=== PATIENT | female | born 1980 | race American Indian/Alaskan Native ===

== ENCOUNTER 2017-10-19 17:55 | Emergency (ER) | payer MEDICAID ==
[2017-10-19 18:51] LABS: Bacteria,Urine 1+ /HPF (Negative); Bilirubin,Urine NEG (Negative); Blood,Urine NEG (Negative); Color,Urine Amber (Yellow); Mucus,Urine 3+ /HPF
[2017-10-19 18:52] LABS: Protein,Urine >500 mg/dL (Negative)
[2017-10-19 18:54] LABS: HCG Qualitative,Urine Negative (Negative)
[2017-10-19 19:47] LABS: Basophils % (Auto) 0.3 % (0.0-1.8); Eosinophils # (Auto) 0.1 K/mm3 (0.0-0.4); Eosinophils % (Auto) 1.6 % (0.0-4.3); Hematocrit 41.5 % (30.3-42.9); Lymphocytes # (Auto) 3.4 K/mm3 (1.2-5.4); Lymphocytes % (Auto) 39.7 % (13.4-35.0); Mean Corpuscular HGB Conc 34 % (30-34); Mean Corpuscular Hemoglobin 30 pg (28-32); Mean Corpuscular Volume 89 fl (79-97); Monocytes # (Auto) 0.6 K/mm3 (0.0-0.8); Monocytes % (Auto) 6.5 % (0.0-7.3); Platelet Count 257 K/mm3 (140-440); Red Blood Count 4.64 M/mm3 (3.65-5.03); Red Cell Distribution Width 15.2 % (13.2-15.2)
[2017-10-19 19:55] LABS: Alanine Aminotransferase 14 units/L (7-56); Albumin 3.5 g/dL (3.9-5); BUN/Creatinine Ratio 10; Blood Urea Nitrogen 7 mg/dL (7-17); Calcium 9.2 mg/dL (8.4-10.2); Hemolysis Index 7; Lipase 61 units/L (13-60)
[2017-10-19] MEDS: LIDOCAINE VISCOUS 2% PO ONE (21:28)
[2017-10-19] MEDS: ZOFRAN ODT PO ONE (21:28)
[2017-10-19] MEDS: ALUM-MAG HYDROX-SIMETH 200-200-20MG/5ML PO ONE (21:28)
[2017-10-19] MEDS: NORVASC PO ONE (21:35)
[2017-10-19] MEDS: HCTZ PO ONE (21:35)
--- NOTE | 2017-10-19 22:00 | XRay Report ---
FINAL REPORT PROCEDURE: Chest. TECHNIQUE: PA and lateral views. HISTORY: Chest pain. COMPARISON: No prior studies are available for comparison. FINDINGS: The heart size is normal. The right lung is clear and well expanded. There is a short linear density in the lingula consistent with a parenchymal scar. The left lung is otherwise clear. There are no pleural effusions. The soft tissues are unremarkable. The regional skeleton appears intact. IMPRESSION: No evidence of acute disease.
[2017-10-19 22:53] VITALS: BP 190/110
--- NOTE | 2017-10-19 23:00 | Emergency Department Report ---
ED General Adult HPI - General Chief complaint: Abdominal Pain Stated complaint: ABDOMINAL PAIN Time Seen by Provider: 10/19/17 20:48 Source: patient Mode of arrival: Ambulatory Limitations: No Limitations - History of Present Illness Initial comments: Pt states that she was diagnosed with gastric ulcers by her PCP 3 wks ago. Has been having worsening nausea, lightheadedness, and abd pain lately. Seh is concerned that her ulcers could be worse. Currently on omeprazole 40 mg daily. She wants to be set up with a assistant store manager. Pt has been intermittently compliant with her BP meds. No urinary symptoms. Has a h/o IBS. No fam hx of IBD. Severity scale (0 -10): 6 - Related Data Home Medications Medication Instructions Recorded Confirmed Last Taken Bisoprolol/Hctz 1 tab PO DAILY 02/14/15 02/14/15 02/14/15 NIFEdipine 90 mg PO DAILY 02/14/15 02/14/15 02/14/15 Spironolactone 1 tab PO DAILY 02/14/15 02/14/15 02/14/15 Wellbutrin 100 mg PO DAILY 02/14/15 02/14/15 02/14/15 Previous Rx's Medication Instructions Recorded Last Taken Type traMADol [Ultram 50 MG tab] 50 mg PO Q6HR PRN #20 tablet 02/15/15 Unknown Rx Acetamin/Codeine 120-12Mg/5 ml 5 ml PO TID PRN #30 ml 03/04/15 Unknown Rx [Tylenol/Codeine] Fluconazole [Diflucan TAB] 150 mg PO ONCE #1 tablet 03/04/15 Unknown Rx Ondansetron [Zofran Odt] 4 mg PO Q6HR PRN #15 tab.rapdis 10/19/17 Unknown Rx Sucralfate [Carafate] 1 gm PO Q6HR PRN #1 bottle 10/19/17 Unknown Rx Allergies Allergy/AdvReac Type Severity Reaction Status Date / Time No Known Allergies Allergy Verified 08/08/14 21:13 ED Review of Systems ROS: Stated complaint: ABDOMINAL PAIN Other details as noted in HPI Comment: All other systems reviewed and negative Gastrointestinal: abdominal pain, nausea, vomiting Neurological: other (dizziness) ED Past Medical Hx - Past Medical History Previous Medical History?: Yes Hx Hypertension: Yes Hx GERD: Yes Additional medical history: Gastric Ulcers - Surgical History Past Surgical History?: Yes Additional Surgical History: - Social History Smoking Status: Current Every Day Smoker Substance Use Type: Alcohol, Prescribed - Medications Home Medications: Home Medications Medication Instructions Recorded Confirmed Last Taken Type Bisoprolol/Hctz 1 tab PO DAILY 02/14/15 02/14/15 02/14/15 History NIFEdipine 90 mg PO DAILY 02/14/15 02/14/15 02/14/15 History Spironolactone 1 tab PO DAILY 02/14/15 02/14/15 02/14/15 History Wellbutrin 100 mg PO DAILY 02/14/15 02/14/15 02/14/15 History traMADol [Ultram 50 MG tab] 50 mg PO Q6HR PRN #20 tablet 02/15/15 Unknown Rx Acetamin/Codeine 120-12Mg/5 ml 5 ml PO TID PRN #30 ml 03/04/15 Unknown Rx [Tylenol/Codeine] Fluconazole [Diflucan TAB] 150 mg PO ONCE #1 tablet 03/04/15 Unknown Rx Ondansetron [Zofran Odt] 4 mg PO Q6HR PRN #15 tab.rapdis 10/19/17 Unknown Rx Sucralfate [Carafate] 1 gm PO Q6HR PRN #1 bottle 10/19/17 Unknown Rx ED Physical Exam - General Limitations: No Limitations General appearance: alert, in no apparent distress - Head Head exam: Present: atraumatic, normocephalic - Eye Eye exam: Present: normal appearance - ENT ENT exam: Present: mucous membranes moist - Neck Neck exam: Present: normal inspection - Respiratory Respiratory exam: Present: normal lung sounds bilaterally. Absent: respiratory distress - Cardiovascular Cardiovascular Exam: Present: regular rate, normal rhythm. Absent: systolic murmur, diastolic murmur, rubs, gallop - GI/Abdominal GI/Abdominal exam: Present: soft, normal bowel sounds. Absent: tenderness - Extremities Exam Extremities exam: Present: normal inspection - Back Exam Back exam: Present: normal inspection - Neurological Exam Neurological exam: Present: alert, oriented X3 - Psychiatric Psychiatric exam: Present: normal affect, normal mood - Skin Skin exam: Present: warm, dry, intact, normal color. Absent: rash ED Course Vital Signs 10/19/17 10/19/17 10/19/17 18:00 20:48 21:35 Temperature 98.8 F 98.1 F Pulse Rate 102 H 81 Respiratory 22 18 18 Rate Blood Pressure 177/108 Blood Pressure 202/118 [Left] O2 Sat by Pulse 100 99 99 Oximetry 10/19/17 10/19/17 21:59 22:52 Temperature Pulse Rate 75 71 Respiratory 16 18 Rate Blood Pressure Blood Pressure 183/123 190/110 [Left] O2 Sat by Pulse 99 100 Oximetry ED Medical Decision Making - Lab Data Result diagrams: 10/19/17 19:07 10/19/17 19:07 - EKG Data -: EKG Interpreted by Me EKG shows normal: sinus rhythm, axis, intervals, QRS complexes, ST-T waves Rate: normal - EKG Data Interpretation: no acute changes - Radiology Data Radiology results: report reviewed, image reviewed - Medical Decision Making 37-year-old female with past medical history of hypertension, IBS that presents to the ER with complaints of abdominal pain, lightheadedness, and nausea. Vital signs negative for hypertension. Systolic blood pressure is 180s of presentation. EKG is nonischemic. Labwork shows concerns for mild dehydration. Patient's given a GI cocktail. I gave the patient her home blood pressure medication. Her blood pressure mildly improved. She said that she'll follow up with their family doctor for further management of her blood pressure and that she does not want to wait for further medication. Given the patient denies any chest pain, short of breath or neurologic symptoms, felt that this was appropriate. Patient will be prescribed Carafate. Clear for discharge. - Differential Diagnosis acs, pna, pe, gastritis, gerd, dehydration Critical care attestation.: If time is entered above; I have spent that time in minutes in the direct care of this critically ill patient, excluding procedure time. ED Disposition Clinical Impression: Nausea, Dehydration, Hypertension Disposition: DC-01 TO HOME OR SELFCARE Is pt being admited?: No Does the pt Need Aspirin: No Condition: Stable Instructions: Abdominal Pain (ED), Hypertension (ED) Additional Instructions: Follow up with your PCP for further management of your blood pressure. Take your blood pressure medication as prescribed. Check your blood pressure when you are feeling lightheaded to see if it is related to what is going on. Prescriptions: Ondansetron [Zofran Odt] 4 mg PO Q6HR PRN #15 tab.rapdis PRN Reason: Nausea Sucralfate [Carafate] 1 gm PO Q6HR PRN #1 bottle PRN Reason: Pain, Mild (1-3) Referrals: PRIMARY CARE, [Primary Care Provider] - 3-5 Days LENARD ARANDA MD [Staff Physician] - 3-5 Days
== END 2017-10-19 23:40 | disposition home or self-care (01) ==
LOC: ED 17:55
DX: E86.0 Dehydration (principal); R11.0 Nausea; I10 Essential (primary) hypertension; K21.9 Gastro-esophageal reflux disease without esophagitis; F17.200 Nicotine dependence, unspecified, uncomplicated; Z87.11 Personal history of peptic ulcer disease
CPT/HCPCS: 36415; 71046; 80053; 81001; 81025; 83690; 84484; 85025; 93005; 93010; Q0162

== ENCOUNTER 2020-01-06 18:27 | Emergency (ER) | payer MEDICAID ==
[2020-01-06 18:38] VITALS: BP 146/94
--- NOTE | 2020-01-06 23:29 | Emergency Department Report ---
ED General Adult HPI - General Chief complaint: Extremity Problem,Nontraumatic Stated complaint: LEFT HAND AND FINGERS NUMB PUI?: No Time Seen by Provider: 01/06/20 22:25 Source: patient Mode of arrival: Ambulatory Limitations: No Limitations - History of Present Illness Initial comments: This is a 39-year-old female with a history of hypertension and diabetes currently controlled with medication presents the ED today complaining of left hand numbness and tingling with pain x2 weeks. Patient states symptoms about 2 weeks ago and has increasingly gotten worse. Patient states pain is intermittent but usually worse at night. She denies any swelling to the hands or injuries to the hand. Patient states sometimes she drops things when she lives with her left hand. She denies fever/chills/chest pain shortness of breath or any other symptoms. - Related Data Home Medications Medication Instructions Recorded Confirmed Last Taken Bisoprolol/Hctz 1 tab PO DAILY 02/14/15 02/14/15 02/14/15 NIFEdipine 90 mg PO DAILY 02/14/15 02/14/15 02/14/15 Spironolactone 1 tab PO DAILY 02/14/15 02/14/15 02/14/15 Wellbutrin 100 mg PO DAILY 02/14/15 02/14/15 02/14/15 Previous Rx's Medication Instructions Recorded Last Taken Type traMADoL [Ultram 50 MG tab] 50 mg PO Q6HR PRN #20 tablet 02/15/15 Unknown Rx Acetamin/Codeine 120-12Mg/5 ml 5 ml PO TID PRN #30 ml 03/04/15 Unknown Rx [Tylenol/Codeine] Fluconazole (Nf) [Diflucan TAB] 150 mg PO ONCE #1 tablet 03/04/15 Unknown Rx Ondansetron [Zofran Odt] 4 mg PO Q6HR PRN #15 tab.rapdis 10/19/17 Unknown Rx Sucralfate [Carafate] 1 gm PO Q6HR PRN #1 bottle 10/19/17 Unknown Rx Gabapentin 300 mg PO QHS #15 cap 01/07/20 Unknown Rx Allergies Allergy/AdvReac Type Severity Reaction Status Date / Time No Known Allergies Allergy Verified 08/08/14 21:13 ED Review of Systems ROS: Stated complaint: LEFT HAND AND FINGERS NUMB Other details as noted in HPI Comment: All other systems reviewed and negative ED Past Medical Hx - Past Medical History Previous Medical History?: Yes Hx Hypertension: Yes Hx GERD: Yes Additional medical history: Gastric Ulcers - Surgical History Past Surgical History?: Yes Additional Surgical History: - Social History Smoking Status: Current Every Day Smoker Substance Use Type: Alcohol, Prescribed - Medications Home Medications: Home Medications Medication Instructions Recorded Confirmed Last Taken Type Bisoprolol/Hctz 1 tab PO DAILY 02/14/15 02/14/15 02/14/15 History NIFEdipine 90 mg PO DAILY 02/14/15 02/14/15 02/14/15 History Spironolactone 1 tab PO DAILY 02/14/15 02/14/15 02/14/15 History Wellbutrin 100 mg PO DAILY 02/14/15 02/14/15 02/14/15 History traMADoL [Ultram 50 MG tab] 50 mg PO Q6HR PRN #20 tablet 02/15/15 Unknown Rx Acetamin/Codeine 120-12Mg/5 ml 5 ml PO TID PRN #30 ml 03/04/15 Unknown Rx [Tylenol/Codeine] Fluconazole (Nf) [Diflucan TAB] 150 mg PO ONCE #1 tablet 03/04/15 Unknown Rx Ondansetron [Zofran Odt] 4 mg PO Q6HR PRN #15 tab.rapdis 10/19/17 Unknown Rx Sucralfate [Carafate] 1 gm PO Q6HR PRN #1 bottle 10/19/17 Unknown Rx Gabapentin 300 mg PO QHS #15 cap 01/07/20 Unknown Rx ED Physical Exam - General Limitations: No Limitations General appearance: alert, in no apparent distress - Head Head exam: Present: atraumatic, normocephalic - Eye Eye exam: Present: normal appearance - ENT ENT exam: Present: mucous membranes moist - Neck Neck exam: Present: normal inspection - Respiratory Respiratory exam: Present: normal lung sounds bilaterally. Absent: respiratory distress - Cardiovascular Cardiovascular Exam: Present: regular rate, normal rhythm. Absent: systolic murmur, diastolic murmur, rubs, gallop - GI/Abdominal GI/Abdominal exam: Present: soft, normal bowel sounds - Extremities Exam Extremities exam: Present: normal inspection, normal capillary refill - Expanded Upper Extremity Exam Left Shoulder Exam: Present: normal inspection Upper Arm exam: Present: normal inspection Elbow exam: Present: normal inspection Forearm Wrist exam: Present: normal inspection, full ROM. Absent: tenderness, swelling, abrasion, laceration Hand Wrist exam: Present: normal inspection, full ROM. Absent: tenderness, swelling, abrasion, laceration, erythema, amputation - Back Exam Back exam: Present: normal inspection - Neurological Exam Neurological exam: Present: alert, oriented X3 - Psychiatric Psychiatric exam: Present: normal affect, normal mood - Skin Skin exam: Present: warm, dry, intact, normal color. Absent: rash ED Course Vital Signs 01/06/20 18:36 Temperature 99.1 F Pulse Rate 97 H Respiratory 20 Rate Blood Pressure 146/94 O2 Sat by Pulse 98 Oximetry ED Medical Decision Making - Medical Decision Making This 39-year-old female presents to ED with left hand paresthesia most likely secondary to diabetic neuropathy. Fingerstick in the ED was normal. I discussed with patient follow-up with her neurologist. Patient is in no acute distress. Patient had no neuro deficit in the ED. Discussed follow-up is essential. Vital signs are normal Critical care attestation.: If time is entered above; I have spent that time in minutes in the direct care of this critically ill patient, excluding procedure time. ED Disposition Clinical Impression: Left hand paresthesia Disposition: DC-01 TO HOME OR SELFCARE Is pt being admited?: No Does the pt Need Aspirin: No Condition: Stable Instructions: Diabetic Neuropathy (ED), Paresthesia (ED) Additional Instructions: Make sure to follow up with the primary care physician as discussed. Take all your medications as you've been prescribed. If you have any worsening symptoms or develop new symptoms please return to ED immediately. Prescriptions: Gabapentin 300 mg PO QHS #15 cap Referrals: MARIANO RIVER MD [Staff Physician] - 3-5 Days [facility] [Provider Group] - 3-5 Days Forms: Work/School Release Form(ED) Time of Disposition: 00:05
== END 2020-01-07 00:10 | disposition home or self-care (01) ==
LOC: ED 18:27
DX: R20.2 Paresthesia of skin (principal); I10 Essential (primary) hypertension; K21.9 Gastro-esophageal reflux disease without esophagitis; F17.200 Nicotine dependence, unspecified, uncomplicated; Z79.899 Other long term (current) drug therapy; Z98.890 Other specified postprocedural states
CPT/HCPCS: 82962; 99283

== ENCOUNTER 2020-07-04 15:03 | Emergency (ER) | payer MEDICAID ==
[2020-07-04 15:53] VITALS: BP 175/111
--- NOTE | 2020-07-04 16:22 | Event Note ---
ED Screening Note Date of service: 07/04/20 Time: 16:21 ED Screening Note: 40-year-old obese female presents to the emergency room for lower back pain status post fall while at [facility] yesterday. Patient has not taken anything for pain. Patient denies any urinary or bowel incontinence. Past medical history of hypertension and prediabetes. This initial assessment/diagnostic orders/clinical plan/treatment(s) is/are subject to change based on patients health status, clinical progression and re- assessment by fellow clinical providers in the ED. Further treatment and workup at subsequent clinical providers discretion. Patient/guardian urged not to elope from the ED as their condition may be serious if not clinically assessed and managed. Initial orders include:
--- NOTE | 2020-07-04 17:21 | XRay Report ---
LUMBAR SPINE 3 VIEWS INDICATION / CLINICAL INFORMATION: fall with back pain. COMPARISON: None available. FINDINGS: VERTEBRAE: No acute fracture. No significant malalignment. DISC SPACES / FACET JOINTS:No significant abnormality. PARASPINAL SOFT TISSUES:No significant abnormality. ADDITIONAL FINDINGS: None. Signer Name: Jagdish Pierre MD Signed: 07/04/2020 5:17 PM Workstation Name: [id number]
--- NOTE | 2020-07-04 17:55 | Emergency Department Report ---
ED Fall HPI - General Chief Complaint: Fall Stated Complaint: FALL/LOWER BACK PRESSURE/BURNING Source: patient Mode of arrival: Ambulatory - History of Present Illness Initial Comments: 40-year-old obese female presents to the emergency room for lower back pain status post fall while at [facility] yesterday. Patient has not taken anything for pain. Patient denies any urinary or bowel incontinence. Past medical history of hypertension and prediabetes. MD Complaint: fall Onset/Timin -: days(s) Fall From: standing When Fall Occurred: [address] [facility] [facility] Fall Occurred: street ([facility]) Loss of Consciousness: none Prolonged Down Time?: no Symptoms Prior to Fall: none Location: back Severity scale (0 -10): 8 Quality: sharp, aching Context: tripped/slipped Associated Symptoms: denies: weakness, chest paint, lightheaded - Related Data Home Medications Medication Instructions Recorded Confirmed Last Taken Bisoprolol/Hctz 1 tab PO DAILY 02/14/15 02/14/15 02/14/15 NIFEdipine 90 mg PO DAILY 02/14/15 02/14/15 02/14/15 Spironolactone 1 tab PO DAILY 02/14/15 02/14/15 02/14/15 Wellbutrin 100 mg PO DAILY 02/14/15 02/14/15 02/14/15 Previous Rx's Medication Instructions Recorded Last Taken Type traMADoL [Ultram 50 MG tab] 50 mg PO Q6HR PRN #20 tablet 02/15/15 Unknown Rx Acetamin/Codeine 120-12Mg/5 ml 5 ml PO TID PRN #30 ml 03/04/15 Unknown Rx [Tylenol/Codeine] Fluconazole (Nf) [Diflucan TAB] 150 mg PO ONCE #1 tablet 03/04/15 Unknown Rx Ondansetron [Zofran Odt] 4 mg PO Q6HR PRN #15 tab.rapdis 10/19/17 Unknown Rx Sucralfate [Carafate] 1 gm PO Q6HR PRN #1 bottle 10/19/17 Unknown Rx Gabapentin 300 mg PO QHS #15 cap 01/07/20 Unknown Rx traMADoL [Ultram 50 MG tab] 50 mg PO Q6HR PRN #12 tablet 07/04/20 Unknown Rx Allergies Allergy/AdvReac Type Severity Reaction Status Date / Time No Known Allergies Allergy Verified 08/08/14 21:13 ED Review of Systems ROS: Stated complaint: FALL/LOWER BACK PRESSURE/BURNING Other details as noted in HPI Comment: All other systems reviewed and negative ED Past Medical Hx - Past Medical History Hx Hypertension: Yes Hx GERD: Yes Additional medical history: Gastric Ulcers - Surgical History Additional Surgical History: - Social History Smoking Status: Current Every Day Smoker Substance Use Type: None - Medications Home Medications: Home Medications Medication Instructions Recorded Confirmed Last Taken Type Bisoprolol/Hctz 1 tab PO DAILY 02/14/15 02/14/15 02/14/15 History NIFEdipine 90 mg PO DAILY 02/14/15 02/14/15 02/14/15 History Spironolactone 1 tab PO DAILY 02/14/15 02/14/15 02/14/15 History Wellbutrin 100 mg PO DAILY 02/14/15 02/14/15 02/14/15 History traMADoL [Ultram 50 MG tab] 50 mg PO Q6HR PRN #20 tablet 02/15/15 Unknown Rx Acetamin/Codeine 120-12Mg/5 ml 5 ml PO TID PRN #30 ml 03/04/15 Unknown Rx [Tylenol/Codeine] Fluconazole (Nf) [Diflucan TAB] 150 mg PO ONCE #1 tablet 03/04/15 Unknown Rx Ondansetron [Zofran Odt] 4 mg PO Q6HR PRN #15 tab.rapdis 10/19/17 Unknown Rx Sucralfate [Carafate] 1 gm PO Q6HR PRN #1 bottle 10/19/17 Unknown Rx Gabapentin 300 mg PO QHS #15 cap 01/07/20 Unknown Rx traMADoL [Ultram 50 MG tab] 50 mg PO Q6HR PRN #12 tablet 07/04/20 Unknown Rx ED Physical Exam - General Limitations: No Limitations General appearance: alert, in no apparent distress, obese - Head Head exam: Present: atraumatic, normocephalic - Eye Eye exam: Present: normal appearance - ENT ENT exam: Present: mucous membranes moist - Neck Neck exam: Present: normal inspection - Respiratory Respiratory exam: Present: normal lung sounds bilaterally. Absent: respiratory distress, chest wall tenderness, accessory muscle use - Cardiovascular Cardiovascular Exam: Present: regular rate - Back Exam Back exam: Present: full ROM, vertebral tenderness - Neurological Exam Neurological exam: Present: alert, oriented X3, normal gait - Psychiatric Psychiatric exam: Present: normal affect, normal mood - Skin Skin exam: Present: warm, dry, intact, normal color. Absent: rash ED Course Vital Signs 07/04/20 15:45 Temperature 98.4 F Pulse Rate 72 Respiratory 18 Rate Blood Pressure 175/111 O2 Sat by Pulse 98 Oximetry ED Medical Decision Making - Radiology Data Radiology results: report reviewed [facility] [address] [place] [address] XRay Report Signed Patient: JONES LORD MR#: [id number] : 1980 Acct:[id number] Age/Sex: 40 / F ADM Date: 07/04/20 Loc: ED Attending Dr: Ordering Physician: MARQUISE LEONE Date of Service: 07/04/20 Procedure(s): XR spine lumbosacral 2-3V Accession Number(s): [id number] cc: MARQUISE LEONE Fluoro Time In Minutes: LUMBAR SPINE 3 VIEWS INDICATION / CLINICAL INFORMATION: fall with back pain. COMPARISON: None available. FINDINGS: VERTEBRAE: No acute fracture. No significant malalignment. DISC SPACES / FACET JOINTS:No significant abnormality. PARASPINAL SOFT TISSUES:No significant abnormality. ADDITIONAL FINDINGS: None. Signer Name: Tracey Pierre MD Signed: 07/04/2020 5:17 PM Workstation Name: [id number] Transcribed By: SS Dictated By: TRACEY PIERRE Electronically Authenticated By: TRACEY PIERRE Signed Date/Time: 07/04/201716 DD/ 15 TD/TT: - Medical Decision Making 40-year-old obese female presents to the emergency room for lower back pain status post fall while at [facility] yesterday. Patient has not taken anything for pain. Patient denies any urinary or bowel incontinence. Past medical history of hypertension and prediabetes. X-ray of back is normal. Patient can take Tylenol. Given a prescription for tramadol for a few days as patient's blood pressure still elevated. The patient presents with acute back pain. The patient is now resting comfortably and feels better, is alert talkative interactive and in no distress. Repeat examination is unremarkable and benign. The patient is neurologically intact and is ambulatory in the ED. Patient has no fever, no bowel or bladder incontinence, no saddle anesthesia, and is otherwise alert and well-appearing. The history physical examination and diagnostic( if any) do not suggest the presence of acute spinal epidural abscess, acute spinal epidural bleed, cauda equina syndrome, abdominal aortic aneurysm, aortic dissection or other process requiring further testing, treatment or consultation in the emergency department. The vital signs have been stable. The patient's condition is stable and appropriate for discharge. The patient will pursue further outpatient evaluation with a primary care physician or other designated or co nsulting physician as indicated in the discharge instructions. Critical care attestation.: If time is entered above; I have spent that time in minutes in the direct care of this critically ill patient, excluding procedure time. ED Disposition Clinical Impression: Fall Qualifiers: Encounter type: initial encounter Qualified Code(s): W19.XXXA - Unspecified fall, initial encounter Hypertension Qualifiers: Hypertension type: essential hypertension Qualified Code(s): I10 - Essential (primary) hypertension Back pain Qualifiers: Back pain location: low back pain Chronicity: acute Back pain laterality: midline Disposition: DC-01 TO HOME OR SELFCARE Is pt being admited?: No Does the pt Need Aspirin: No Condition: Stable Instructions: Hypertension (ED), Hypertension, Adult, [id number], Acute Back Pain, Adult Additional Instructions: X-ray of back is negative for any fractures or subluxation. Given you prescription for tramadol. I highly recommended you follow-up with your primary care provider as your blood pressure is still elevated. Prescriptions: traMADoL [Ultram 50 MG tab] 50 mg PO Q6HR PRN #12 tablet PRN Reason: Pain Referrals: JAHAIRA GOMEZ MD [Primary Care Provider] - 3-5 Days Forms: Work/School Release Form(ED)
== END 2020-07-04 18:31 | disposition home or self-care (01) ==
LOC: ED 15:03
DX: M54.5 Low back pain (principal); I10 Essential (primary) hypertension; K21.9 Gastro-esophageal reflux disease without esophagitis; F17.200 Nicotine dependence, unspecified, uncomplicated; Z79.899 Other long term (current) drug therapy
CPT/HCPCS: 72100; 99283

== ENCOUNTER 2020-12-17 17:21 | Observation (INO) | payer MEDICAID ==
[2020-12-17] MEDS ORDERED: METOPROLOL TARTRATE 50 MG TAB PO ONE (17:51)
[2020-12-17] MEDS ORDERED: ASPIRIN 81 MG TAB CHEW PO ONE (17:52)
--- NOTE | 2020-12-17 17:57 | Emergency Department Report ---
ED Chest Pain HPI - General Chief Complaint: Chest Pain Stated Complaint: CHEST PAIN Time Seen by Provider: 12/17/20 17:50 Source: patient Mode of arrival: Ambulatory Limitations: No Limitations - History of Present Illness Initial Comments: 40-year-old -[place] female presents to the emergency department with complaint of midsternal to left-sided chest pain, without radiation, that has been going on since last night. Initially it started last night while at rest. It began to improve but then came back after she ate dinner and climbed the stairs to her bedroom. She had some difficulty getting appropriate sleep secondary to the discomfort, which she describes as a pressure. She was able to fall asleep but woke up with the pain again. Currently she says it is 6 out of 10 in intensity. No known alleviating factors. Patient took her blood pressure medications this morning including metoprolol 25 mg daily and hydralazine 50 mg daily. She has a history of hypertension, diabetes (although not compliant with meds), and the patient is a tobacco smoker. She denies any illicit drug use. The patient says that her brother had an WA at 45 years of age. Her primary care physician is Dr. Jarret English. She does not have a city dispatcher. No recent travel or sick contacts at home. Severity scale (0 -10): 6 - Related Data Home Medications Medication Instructions Recorded Confirmed Last Taken Bisoprolol/Hctz 1 tab PO DAILY 02/14/15 02/14/15 02/14/15 NIFEdipine 90 mg PO DAILY 02/14/15 02/14/15 02/14/15 Spironolactone 1 tab PO DAILY 02/14/15 02/14/15 02/14/15 Wellbutrin 100 mg PO DAILY 02/14/15 02/14/15 02/14/15 Previous Rx's Medication Instructions Recorded Last Taken Type traMADoL [Ultram 50 MG tab] 50 mg PO Q6HR PRN #20 tablet 02/15/15 Unknown Rx Acetamin/Codeine 120-12Mg/5 ml 5 ml PO TID PRN #30 ml 03/04/15 Unknown Rx [Tylenol/Codeine] Fluconazole (Nf) [Diflucan TAB] 150 mg PO ONCE #1 tablet 03/04/15 Unknown Rx Ondansetron [Zofran Odt] 4 mg PO Q6HR PRN #15 tab.rapdis 10/19/17 Unknown Rx Sucralfate [Carafate] 1 gm PO Q6HR PRN #1 bottle 10/19/17 Unknown Rx Gabapentin 300 mg PO QHS #15 cap 01/07/20 Unknown Rx traMADoL [Ultram 50 MG tab] 50 mg PO Q6HR PRN #12 tablet 07/04/20 Unknown Rx Allergies Allergy/AdvReac Type Severity Reaction Status Date / Time No Known Allergies Allergy Verified 08/08/14 21:13 Heart Score - HEART Score History: Moderately suspicious (Exertion increases pain) EKG: Non-specific Age: < 45 Risk factors: > 3 risk factors or hx of atherosclerotic disease (Tobacco, Brother [place] at 45 yoa, HTN) Troponin: < normal limit HEART Score: 4 - EKG Read Time Time EKG Completed: 17:40 EKG Read Time: 17:45 - Critical Actions Critical Actions: 4-6 pts:12-16.6% risk of adverse cardiac event. Should be admitted ED Review of Systems ROS: Stated complaint: CHEST PAIN Other details as noted in HPI Comment: All other systems reviewed and negative Constitutional: denies: chills, fever Eyes: denies: eye pain, vision change ENT: denies: ear pain, throat pain Respiratory: denies: cough, shortness of breath Cardiovascular: chest pain. denies: palpitations Gastrointestinal: denies: abdominal pain, vomiting Genitourinary: denies: dysuria, discharge Musculoskeletal: denies: back pain, arthralgia Skin: denies: rash, change in color Neurological: denies: weakness ED Past Medical Hx - Past Medical History Hx Hypertension: Yes Hx GERD: Yes Additional medical history: Gastric Ulcers - Surgical History Additional Surgical History: - Social History Smoking Status: Current Every Day Smoker Substance Use Type: None - Medications Home Medications: Home Medications Medication Instructions Recorded Confirmed Last Taken Type Bisoprolol/Hctz 1 tab PO DAILY 02/14/15 02/14/15 02/14/15 History NIFEdipine 90 mg PO DAILY 02/14/15 02/14/15 02/14/15 History Spironolactone 1 tab PO DAILY 02/14/15 02/14/15 02/14/15 History Wellbutrin 100 mg PO DAILY 02/14/15 02/14/15 02/14/15 History traMADoL [Ultram 50 MG tab] 50 mg PO Q6HR PRN #20 tablet 02/15/15 Unknown Rx Acetamin/Codeine 120-12Mg/5 ml 5 ml PO TID PRN #30 ml 03/04/15 Unknown Rx [Tylenol/Codeine] Fluconazole (Nf) [Diflucan TAB] 150 mg PO ONCE #1 tablet 03/04/15 Unknown Rx Ondansetron [Zofran Odt] 4 mg PO Q6HR PRN #15 tab.rapdis 10/19/17 Unknown Rx Sucralfate [Carafate] 1 gm PO Q6HR PRN #1 bottle 10/19/17 Unknown Rx Gabapentin 300 mg PO QHS #15 cap 01/07/20 Unknown Rx traMADoL [Ultram 50 MG tab] 50 mg PO Q6HR PRN #12 tablet 07/04/20 Unknown Rx ED Physical Exam - General Limitations: No Limitations - Other Other exam information: GENERAL: The patient is well-developed well-nourished. HENT: Normocephalic. Atraumatic. Patient has moist mucous membranes. EYES: Extraocular motions are intact. NECK: Supple. Trachea is midline. CHEST/LUNGS: Clear to auscultation. There is no respiratory distress noted. HEART/CARDIOVASCULAR: Regular. There is no tachycardia. There is no murmur. ABDOMEN: Abdomen is soft, nontender. Patient has normal bowel sounds. SKIN: Skin is warm and dry. NEURO: The patient is awake, alert, and oriented. The patient is cooperative. The patient has no focal neurologic deficits. Normal speech. MUSCULOSKELETAL: There is no tenderness or deformity. There is no limitation range of motion. ED Course Vital Signs 12/17/20 12/17/20 12/17/20 17:31 21:30 22:22 Temperature 98.2 F Pulse Rate 87 91 H 93 H Respiratory 22 12 Rate Blood Pressure Blood Pressure 222/131 215/140 184/118 [Right] O2 Sat by Pulse 100 98 Oximetry 12/17/20 12/17/20 12/17/20 22:44 22:45 22:48 Temperature Pulse Rate 121 H 120 H 100 H Respiratory 27 H 18 Rate Blood Pressure Blood Pressure 196/108 [Right] O2 Sat by Pulse 100 Oximetry 12/18/20 00:02 Temperature Pulse Rate 100 H Respiratory Rate Blood Pressure 196/108 Blood Pressure [Right] O2 Sat by Pulse Oximetry KIRA score - Kira Score Age > 65: (0) No Aspirin use within the Past 7 Days: (0) No 3 or more CAD Risk Factors: (1) Yes 2 or more Angina events in past 24 hrs: (1) Yes Known CAD with more than 50% Stenosis: (0) No Elevated Cardiac Markers: (0) No ST Deviation Greater than 0.5mm: (0) No KIRA Score: 2 ED Medical Decision Making - Lab Data Result diagrams: 12/18/20 00:00 12/18/20 00:00 Lab Results 12/17/20 12/17/20 12/17/20 Range/Units 18:00 18:00 20:40 WBC 9.0 (4.5-11.0) K/mm3 RBC 4.96 (3.65-5.03) M/mm3 Hgb 14.8 H (10.1-14.3) gm/dl Hct 44.0 H (30.3-42.9) % MCV 89 (79-97) fl MCH 30 (28-32) pg MCHC 34 (30-34) % RDW 15.5 H (13.2-15.2) % Plt Count 294 (140-440) K/mm3 Lymph % (Auto) 39.5 H (13.4-35.0) % Bland % (Auto) 6.9 (0.0-7.3) % Eos % (Auto) 1.9 (0.0-4.3) % Baso % (Auto) 0.3 (0.0-1.8) % Lymph # (Auto) 3.6 (1.2-5.4) K/mm3 Bland # (Auto) 0.6 (0.0-0.8) K/mm3 Eos # (Auto) 0.2 (0.0-0.4) K/mm3 Baso # (Auto) 0.0 (0.0-0.1) K/mm3 Seg Neutrophils % 51.4 (40.0-70.0) % Seg Neutrophils # 4.6 (1.8-7.7) K/mm3 Sodium 138 (137-145) mmol/L Potassium 4.2 (3.6-5.0) mmol/L Chloride 105.2 (98-107) mmol/L Carbon Dioxide 22 (22-30) mmol/L Anion Gap 15 mmol/L BUN 12 (7-17) mg/dL Creatinine 0.6 (0.6-1.2) mg/dL Estimated GFR > 60 ml/min BUN/Creatinine Ratio 20 % Glucose 105 H (65-100) mg/dL Calcium 9.2 (8.4-10.2) mg/dL Troponin T < 0.010 < 0.010 (0.00-0.029) ng/mL - EKG Data -: EKG Interpreted by Me EKG shows normal: sinus rhythm, axis, intervals, QRS complexes (Q waves to the anterior leads), ST-T waves (Lateral T wave inversions) Rate: normal - EKG Data When compared to previous EKG there are: changes noted (Previous EKG from 2018 did not show anterior Q waves or T wave inversions) Interpretation: other (Sinus rhythm at 84 bpm, normal axis, normal intervals, anterior Q waves, T wave inversions to the high lateral leads.) - Radiology Data Radiology results: image reviewed interpreted by me: Chest x-ray does not show any acute process. There are no pleural effusions, obvious pneumonia and there is no pneumothorax. No widened mediastinum. - Medical Decision Making This patient presents to the emergency department with left-sided chest pain going on since last night. She also presents with extremely elevated blood pressure. EKG did not have any morphology consistent with ST elevation myocardial infarction. The patient does appear to have new lateral T wave inversions and anterior Q waves when compared to her last EKG here in 2018. Chest x-ray does not show any pneumonia, pleural effusions, pneumothorax, focal consolidation, or any other acute process. Patient's labs have been mostly unremarkable thus far including CBC, metabolic panel and negative troponin x2. Patient has a moderate heart score. Her pain worsens with any exertion. She has a nonspecific EKG. She has 3 or more risk factors for coronary artery disease including tobacco use, hypertension, and early family history of [place]. Patient was given multiple doses of IV analgesia with some improvement in her hypertension. She will be admitted to the hospital for further evaluation and treatment and was accepted for patient by the hospitalist, Dr. Harding. Critical Care Time: No Critical care attestation.: If time is entered above; I have spent that time in minutes in the direct care of this critically ill patient, excluding procedure time. ED Disposition Clinical Impression: Hypertensive urgency, Acute chest pain, Tobacco use Disposition: ADMITTED INPATIENT Is pt being admited?: Yes Condition: Fair Time of Disposition: 22:50
[2020-12-17 18:34] LABS: Blood Urea Nitrogen 12 mg/dL (7-17); Calcium 9.2 mg/dL (8.4-10.2); Hemolysis Index 9
[2020-12-17 18:35] LABS: BUN/Creatinine Ratio 20
--- NOTE | 2020-12-17 18:47 | XRay Report ---
CHEST 2 VIEWS INDICATION / CLINICAL INFORMATION: C/O CHEST PAIN. NO RADAITION NO SOB NO DIAPHORESIS. NO N/V. STARTE D LAST NIGHT. COMPARISON: None available. FINDINGS: SUPPORT DEVICES: None. HEART / MEDIASTINUM: No significant abnormality. LUNGS / PLEURA: No focal consolidation. Minimal linear atelectasis in left midlung No pneumothorax. ADDITIONAL FINDINGS: No significant additional findings. IMPRESSION: 1. No acute findings. Signer Name: Wolf Chung MD Signed: 12/17/2020 6:42 PM Workstation Name: [id number]
[2020-12-17 18:49] LABS: Basophils % (Auto) 0.3 % (0.0-1.8); Eosinophils # (Auto) 0.2 K/mm3 (0.0-0.4); Eosinophils % (Auto) 1.9 % (0.0-4.3); Hemoglobin 14.8 gm/dl (10.1-14.3); Lymphocytes # (Auto) 3.6 K/mm3 (1.2-5.4); Lymphocytes % (Auto) 39.5 % (13.4-35.0); Mean Corpuscular HGB Conc 34 % (30-34); Mean Corpuscular Volume 89 fl (79-97); Monocytes # (Auto) 0.6 K/mm3 (0.0-0.8); Monocytes % (Auto) 6.9 % (0.0-7.3); Platelet Count 294 K/mm3 (140-440); Red Blood Count 4.96 M/mm3 (3.65-5.03); Red Cell Distribution Width 15.5 % (13.2-15.2)
[2020-12-17] MEDS ORDERED: hydrALAZINE 20 MG/1 ML INJ IV ONE ×2 (19:37→21:29)
[2020-12-17] MEDS ORDERED: SENNOSIDES 8.6 MG TAB PO PRN (23:39)
[2020-12-17] MEDS ORDERED: IBUPROFEN 600 MG TAB PO PRN (23:39)
[2020-12-17] MEDS ORDERED: MAGNESIUM HYDROXIDE (MOM) ORAL LIQD UDC PO PRN (23:39)
[2020-12-17] MEDS ORDERED: ALUM-MAG HYDROXIDE-SIMETHICONE 200-200-20MG/5ML ORAL LIQD 30 ML PO PRN (23:39)
[2020-12-17] MEDS ORDERED: NITROGLYCERIN 0.4 MG TAB SUBL SL PRN (23:39)
[2020-12-17] MEDS ORDERED: ONDANSETRON 4 MG/2 ML INJ IV PRN (23:39)
[2020-12-17] MEDS ORDERED: traMADol 50 MG TAB PO PRN (23:39)
[2020-12-17] MEDS ORDERED: METOCLOPRAMIDE 10 MG/2 ML INJ IV PRN (23:39)
[2020-12-17] MEDS ORDERED: ACETAMINOPHEN 325 MG TAB PO PRN (23:39)
[2020-12-17] MEDS ORDERED: NALOXONE 0.4 MG/1 ML INJ IV PRN (23:39)
[2020-12-17] MEDS ORDERED: METOPROLOL TARTRATE 25 MG TAB PO SCH (23:45)
[2020-12-18] MEDS: oxyCODONE /ACETAMINOPHEN 5-325MG TAB PO PRN ×3 (00:03→23:11)
--- NOTE | 2020-12-18 00:03 | History and Physical Report ---
History of Present Illness Date of examination: 12/17/20 Date of admission: 12/17/20 22:50 Chief complaint: Chest pain Hypertensive urgency History of present illness: This is a 40-year-old -[place] female that is seen in the ED at bedside. Patient presents to the emergency department with complaint of midsternal to left-sided chest pain, without radiation, that has been going on since last night. She describes the pain as pressure pain but no radiating. She said her pain has been ongoing of but has worsened and that is why she came to the hospital. Patient has a history of high blood pressure and she admits that she has not been compliant with her blood pressure medicine. Pain level is 7/10. Per patient ED note, Patient took her blood pressure medications this morning including metoprolol 25 mg daily and hydralazine 50 mg daily. Patient admits tobacco use about a pack in 2 days, she denies chronic alcohol use and illicit drug use. Chest x-ray is done and no acute finding. Cardiology consulted and echocardiogram ordered. I reviewed patient medical record, medication record and vital signs. Patient not in acute distress at this time. Patient is on room air. Past History Past Medical History: diabetes (Patient reported history of elevated lipid and blood sugarnot on any medicine), hypertension, hyperlipidemia Past Surgical History: Social history: lives with family, smoking, full code. denies: alcohol abuse, IV drug use Family history: diabetes, hypertension (Brother of heart attack, mother and sibling both have hypertension and diabetes) Medications and Allergies Allergies Allergy/AdvReac Type Severity Reaction Status Date / Time No Known Allergies Allergy Verified 08/08/14 21:13 Home Medications Medication Instructions Recorded Confirmed Last Taken Type Bisoprolol/Hctz 1 tab PO DAILY 02/14/15 02/14/15 02/14/15 History NIFEdipine 90 mg PO DAILY 02/14/15 02/14/15 02/14/15 History Spironolactone 1 tab PO DAILY 02/14/15 02/14/15 02/14/15 History Wellbutrin 100 mg PO DAILY 02/14/15 02/14/15 02/14/15 History traMADoL [Ultram 50 MG tab] 50 mg PO Q6HR PRN #20 tablet 02/15/15 Unknown Rx Acetamin/Codeine 120-12Mg/5 ml 5 ml PO TID PRN #30 ml 03/04/15 Unknown Rx [Tylenol/Codeine] Fluconazole (Nf) [Diflucan TAB] 150 mg PO ONCE #1 tablet 03/04/15 Unknown Rx Ondansetron [Zofran Odt] 4 mg PO Q6HR PRN #15 tab.rapdis 10/19/17 Unknown Rx Sucralfate [Carafate] 1 gm PO Q6HR PRN #1 bottle 10/19/17 Unknown Rx Gabapentin 300 mg PO QHS #15 cap 01/07/20 Unknown Rx traMADoL [Ultram 50 MG tab] 50 mg PO Q6HR PRN #12 tablet 07/04/20 Unknown Rx Active Meds: Active Medications Acetaminophen (Acetaminophen 325 Mg Tab) 650 mg PO Q4H PRN PRN Reason: Pain MILD(1-3)/Fever >100.5/ORDONEZ Al Hydrox/Mg Hydrox/Simethicone (Alum-Mag Hydroxide-Simethicone [phone]/5ml Oral Liqd 30 Ml) 30 ml PO Q4H PRN PRN Reason: Indigestion Aspirin (Aspirin 81 Mg Tab Chew) 81 mg PO QDAY NENA Atorvastatin Calcium (Atorvastatin 40 Mg Tab) 40 mg PO QHS NENA Enoxaparin Sodium (Enoxaparin 40 Mg/0.4 Ml Inj) 40 mg SUB-Q QDAY NENA Famotidine (Famotidine 20 Mg/2 Ml Inj) 20 mg IV BID NENA Ibuprofen (Ibuprofen 600 Mg Tab) 600 mg PO Q6H PRN PRN Reason: Pain, Mild (1-3) Magnesium Hydroxide (Magnesium Hydroxide (Mom) Oral Liqd Udc) 30 ml PO Q4H PRN PRN Reason: Constipation Metoclopramide HCl (Metoclopramide 10 Mg/2 Ml Inj) 10 mg IV Q6H PRN PRN Reason: Nausea And Vomiting Metoprolol Tartrate (Metoprolol Tartrate 25 Mg Tab) 25 mg PO BID NENA Naloxone HCl (Naloxone 0.4 Mg/1 Ml Inj) 0.1 mg IV Q2MIN PRN PRN Reason: Res Rate </= 8 or 02 SAT < 92% Nitroglycerin (Nitroglycerin 0.4 Mg Tab Subl) 0.4 mg SL Q5M PRN PRN Reason: Chest Pain Ondansetron HCl (Ondansetron 4 Mg/2 Ml Inj) 4 mg IV Q8H PRN PRN Reason: Nausea And Vomiting Oxycodone/Acetaminophen (Oxycodone /Acetaminophen 5-325mg Tab) 1 tab PO Q6H PRN PRN Reason: Pain, Moderate (4-6) Senna (Sennosides 8.6 Mg Tab) 8.6 mg PO Q12HR PRN PRN Reason: Constipation Sodium Chloride (Sodium Chloride 0.9% 10 Ml Flush Syringe) 10 ml IV BID NENA Sodium Chloride (Sodium Chloride 0.9% 10 Ml Flush Syringe) 10 ml IV PRN PRN PRN Reason: LINE FLUSH Tramadol HCl (Tramadol 50 Mg Tab) 50 mg PO Q6H PRN PRN Reason: Pain, Moderate (4-6) Review of Systems Constitutional: fatigue Ears, nose, mouth and throat: no epistaxis, no bleeding gums Cardiovascular: chest pain, high blood pressure Respiratory: no congestion, no wheezing Gastrointestinal: no melena Rectal: no itching, no hemorrhoids Integumentary: no rash, no pruritis Psychiatric: anxiety, depression Endocrine: high blood sugars Hematologic/Lymphatic: no easy bruising, no easy bleeding Allergic/Immunologic: no urticaria Exam - Constitutional Vitals: Temp Pulse Resp BP Pulse Ox 98.2 F 100 H 18 196/108 100 12/17/20 17:31 12/17/20 22:48 12/17/20 22:48 12/17/20 22:48 12/17/20 22:48 General appearance: Present: mild distress, obese - EENT Eyes: Present: PERRL ENT: hearing intact, clear oral mucosa - Neck Neck: Present: supple, normal ROM - Respiratory Respiratory effort: normal Respiratory: bilateral: CTA - Cardiovascular Heart rate: 100 Heart Sounds: Present: S1 & S2. Absent: rub, click - Extremities Extremities: pulses symmetrical, No edema Peripheral Pulses: within normal limits - Abdominal General gastrointestinal: Present: soft, non-tender, non-distended, normal bowel sounds Female genitourinary: Present: normal - Integumentary Integumentary: Present: clear, warm, dry - Musculoskeletal Musculoskeletal: gait normal, strength equal bilaterally - Psychiatric Psychiatric: appropriate mood/affect, intact judgment & insight - Neurologic Neurologic: CNII-XII intact, moves all extremities HEART Score - HEART Score EKG: Non-specific Age: < 45 Risk factors: > 3 risk factors or hx of atherosclerotic disease (Tobacco, Brother [place] at 45 yoa, HTN) Troponin: Troponin T < 0.010 ng/mL (0.00-0.029) 12/17/20 20:40 Troponin: < normal limit - Critical Actions Critical Actions: 4-6 pts:12-16.6% risk of adverse cardiac event. Should be admitted Results - Labs CBC & Chem 7: 12/18/20 03:59 12/18/20 03:59 Labs: Abnormal lab results 12/17/20 12/17/20 Range/Units 18:00 18:00 Hgb 14.8 H (10.1-14.3) gm/dl Hct 44.0 H (30.3-42.9) % RDW 15.5 H (13.2-15.2) % Lymph % (Auto) 39.5 H (13.4-35.0) % Glucose 105 H (65-100) mg/dL Assessment and Plan - Patient Problems (1) Acute chest pain Current Visit: Yes Status: Acute Plan to address problem: Cardioprotective measuresantiplatelet, BB, and statin Tax Representative consult Echocardiogramfollow-up with results Check a.m. lab, lipid panel, hemoglobin A1c, CBC, and BMP. (2) Hypertensive urgency Current Visit: Yes Status: Acute Plan to address problem: Monitor monitor blood pressure Resume home antihypertensive As needed hydralazine Checks x-rayno acute finding (3) Obesity (BMI 30-39.9) Current Visit: Yes Status: Acute Plan to address problem: Embolus discussed lifestyle modification Discussed healthy diet more fruits and vegetables and weight management. Advised on the significant of regular exercise, avoid salty diet, and foods rich in concentrated sweeteners. Check hemoglobin A1c (4) Tobacco use Current Visit: Yes Status: Acute Plan to address problem: Discussed tobacco use cessation cardiovascular and neoplasm syndrome of tobacco use explained to patient Patient voiced understanding (5) DVT prophylaxis Current Visit: Yes Status: Acute Plan to address problem: Subcutaneous Lovenox
[2020-12-18 00:12] LABS: Basophils # (Auto) 0.1 K/mm3 (0.0-0.1); Basophils % (Auto) 1.1 % (0.0-1.8); Eosinophils # (Auto) 0.1 K/mm3 (0.0-0.4); Eosinophils % (Auto) 1.5 % (0.0-4.3); Hematocrit 44.7 % (30.3-42.9); Hemoglobin 15.4 gm/dl (10.1-14.3); Lymphocytes # (Auto) 3.9 K/mm3 (1.2-5.4); Lymphocytes % (Auto) 39.2 % (13.4-35.0); Mean Corpuscular HGB Conc 34 % (30-34); Mean Corpuscular Volume 88 fl (79-97); Monocytes # (Auto) 0.7 K/mm3 (0.0-0.8); Platelet Count 294 K/mm3 (140-440); Red Cell Distribution Width 15.4 % (13.2-15.2)
[2020-12-18] MEDS ORDERED: SUCRALFATE 1 GM/10 ML ORAL LIQD PO PRN (00:12)
[2020-12-18 00:27] LABS: Blood Urea Nitrogen 9 mg/dL (7-17); Calcium 9.1 mg/dL (8.4-10.2); Hemolysis Index 1
[2020-12-18 00:31] LABS: BUN/Creatinine Ratio 15
[2020-12-18 01:14] LABS: Bacteria,Urine 1+ /HPF (Negative); Bilirubin,Urine NEG (Negative); Blood,Urine NEG (Negative); Color,Urine Straw (Yellow); Urobilinogen,Urine < 2.0 mg/dL (<2.0); WBC,Urine < 1.0 /HPF (0.0-6.0)
[2020-12-18 01:20] LABS: Protein,Urine >500 mg/dL (Negative)
[2020-12-18 04:55] LABS: Basophils % (Auto) 0.5 % (0.0-1.8); Eosinophils # (Auto) 0.1 K/mm3 (0.0-0.4); Eosinophils % (Auto) 1.3 % (0.0-4.3); Hematocrit 42.6 % (30.3-42.9); Hemoglobin 14.6 gm/dl (10.1-14.3); Lymphocytes # (Auto) 3.5 K/mm3 (1.2-5.4); Lymphocytes % (Auto) 35.7 % (13.4-35.0); Mean Corpuscular HGB Conc 34 % (30-34); Mean Corpuscular Volume 89 fl (79-97); Monocytes # (Auto) 0.9 K/mm3 (0.0-0.8); Platelet Count 268 K/mm3 (140-440); Red Cell Distribution Width 15.5 % (13.2-15.2)
[2020-12-18 05:08] LABS: Alanine Aminotransferase 10 units/L (7-56); Albumin 3.4 g/dL (3.9-5); Blood Urea Nitrogen 12 mg/dL (7-17); Calcium 9.3 mg/dL (8.4-10.2); Chol/HDL Ratio 7.57 %; HDL Cholesterol 38 mg/dL (40-59); Hemolysis Index 11; LDL Cholesterol,Direct TNR mg/dL (50-130)
[2020-12-18 05:09] LABS: BUN/Creatinine Ratio 17
[2020-12-18] MEDS: INSULIN LISPRO 100 UNIT/ML SUB-Q SCH ×4 (08:05→21:45)
[2020-12-18] MEDS ORDERED: NON-FORMULARY EACH (Nifedipine 90 MG) PO SCH (10:00)
[2020-12-18] MEDS ORDERED: WELLBUTRIN 100 MG PO SCH (10:00)
[2020-12-18] MEDS ORDERED: BISOPROLOL PO SCH (10:00)
[2020-12-18] MEDS ORDERED: HCTZ PO SCH (10:00)
--- NOTE | 2020-12-18 10:15 | Electrocardiograph Report ---
[facility] Test Date: 2020-12-17 Test Time: 17:40:55 Pat Name: JONES LORD Department: Room: [place] [address] Gender: F Size Marker: omid : 1980 Requested By: ROVERTO BALTAZAR Order Number: [id number] Reading MD: Maikol Potts Measurements Intervals [place] Rate: 84 P: 48 [place]: 168 QRS: 4 QRSD: 74 T: 115 QT: 368 QTc: 435 Interpretive Statements Sinus rhythm Anterior infarct, old No previous ECG available for comparison Electronically Signed On 12-18-2020 10:15:07 EDT by Maikol Potts
[2020-12-18] MEDS: buPROPion SR 100 MG TAB PO SCH (11:15)
[2020-12-18] MEDS: ASPIRIN 81 MG TAB CHEW PO SCH (11:15)
[2020-12-18] MEDS: NIFEdipine XL 90 MG TAB PO SCH (11:15)
[2020-12-18] MEDS: FAMOTIDINE 20 MG/2 ML INJ IV SCH ×2 (11:15→21:45)
[2020-12-18] MEDS: ENOXAPARIN 40 MG/0.4 ML INJ SUB-Q SCH (11:16)
[2020-12-18] MEDS: hydrALAZINE 25 MG TAB PO SCH ×2 (12:41→21:45)
[2020-12-18] MEDS: METOPROLOL TARTRATE 25 MG TAB PO SCH ×2 (12:41→21:45)
--- NOTE | 2020-12-18 14:03 | Consultation ---
History of Present Illness Consult date: 12/18/20 Requesting physician: ANYI SOLANO Consult reason: chest pain History of present illness: Patient is a 40 y/o female, who is previously unknown to our practice, with a pmhx of HTN and DM who presented to the ED for complaint of chest pain. She describes the pain as a tightness/pressure that is located midsternal/left sided. She says the pain has occurred before usually when she works or is moving about and that it lasts for 20-30min and stops when she rests. She came to the hospital because the pain has become worse and that it did not go away this time. She reports that she does have headache but denies diaphoresis, SOB, dyspnea, nausea, or vomiting. She also reports a history of family heart disease and tobacco use. ED work up showed negative troponins x2. Cardiology is consulted for chest pain Past History Past Medical History: diabetes (Patient reported history of elevated lipid and blood sugarnot on any medicine), hypertension, hyperlipidemia Past Surgical History: Social history: lives with family, smoking, full code. denies: alcohol abuse, IV drug use Family history: CAD, diabetes, hypertension (Brother of heart attack, mother and sibling both have hypertension and diabetes) Medications and Allergies Allergies Allergy/AdvReac Type Severity Reaction Status Date / Time No Known Allergies Allergy Verified 08/08/14 21:13 Home Medications Medication Instructions Recorded Confirmed Last Taken Type Bisoprolol/Hctz 1 tab PO DAILY 02/14/15 02/14/15 02/14/15 History NIFEdipine 90 mg PO DAILY 02/14/15 02/14/15 02/14/15 History Spironolactone 1 tab PO DAILY 02/14/15 02/14/15 02/14/15 History Wellbutrin 100 mg PO DAILY 02/14/15 02/14/15 02/14/15 History traMADoL [Ultram 50 MG tab] 50 mg PO Q6HR PRN #20 tablet 02/15/15 Unknown Rx Acetamin/Codeine 120-12Mg/5 ml 5 ml PO TID PRN #30 ml 03/04/15 Unknown Rx [Tylenol/Codeine] Fluconazole (Nf) [Diflucan TAB] 150 mg PO ONCE #1 tablet 03/04/15 Unknown Rx Ondansetron [Zofran Odt] 4 mg PO Q6HR PRN #15 tab.rapdis 10/19/17 Unknown Rx Sucralfate [Carafate] 1 gm PO Q6HR PRN #1 bottle 10/19/17 Unknown Rx Gabapentin 300 mg PO QHS #15 cap 01/07/20 Unknown Rx traMADoL [Ultram 50 MG tab] 50 mg PO Q6HR PRN #12 tablet 07/04/20 Unknown Rx Active Meds: Active Medications Acetaminophen (Acetaminophen 325 Mg Tab) 650 mg PO Q4H PRN PRN Reason: Pain MILD(1-3)/Fever >100.5/ORDONEZ Al Hydrox/Mg Hydrox/Simethicone (Alum-Mag Hydroxide-Simethicone [phone]/5ml Oral Liqd 30 Ml) 30 ml PO Q4H PRN PRN Reason: Indigestion Aspirin (Aspirin 81 Mg Tab Chew) 81 mg PO QDAY [facility] Last Admin: 12/18/20 11:15 Dose: 81 mg Documented by: Atorvastatin Calcium (Atorvastatin 40 Mg Tab) 40 mg PO QHS [facility] Bupropion HCl (Bupropion Sr 100 Mg Tab) 100 mg PO DAILY [facility] Last Admin: 12/18/20 11:15 Dose: 100 mg Documented by: Enoxaparin Sodium (Enoxaparin 40 Mg/0.4 Ml Inj) 40 mg SUB-Q QDAY [facility] Last Admin: 12/18/20 11:16 Dose: 40 mg Documented by: Famotidine (Famotidine 20 Mg/2 Ml Inj) 20 mg IV BID [facility] Last Admin: 12/18/20 11:15 Dose: 20 mg Documented by: Gabapentin (Gabapentin 300 Mg Cap) 300 mg PO QHS [facility] Hydralazine HCl (Hydralazine 25 Mg Tab) 50 mg PO BID [facility] Last Admin: 12/18/20 12:41 Dose: 50 mg Documented by: Ibuprofen (Ibuprofen 600 Mg Tab) 600 mg PO Q6H PRN PRN Reason: Pain, Mild (1-3) Insulin Human Lispro (Insulin Lispro 100 Unit/Ml) 0 unit SUB-Q [facility]; Protocol Last Admin: 12/18/20 11:25 Dose: Not Given Documented by: Magnesium Hydroxide (Magnesium Hydroxide (Mom) Oral Liqd Udc) 30 ml PO Q4H PRN PRN Reason: Constipation Metoclopramide HCl (Metoclopramide 10 Mg/2 Ml Inj) 10 mg IV Q6H PRN PRN Reason: Nausea And Vomiting Metoprolol Tartrate (Metoprolol Tartrate 25 Mg Tab) 25 mg PO BID [facility] Last Admin: 12/18/20 12:41 Dose: 25 mg Documented by: Miscellaneous Medication (Bisoprolol/Hctz) 1 tab PO DAILY [facility] Naloxone HCl (Naloxone 0.4 Mg/1 Ml Inj) 0.1 mg IV Q2MIN PRN PRN Reason: Res Rate </= 8 or 02 SAT < 92% Nifedipine (Nifedipine Xl 90 Mg Tab) 90 mg PO DAILY [facility] Last Admin: 12/18/20 11:15 Dose: 90 mg Documented by: Nitroglycerin (Nitroglycerin 0.4 Mg Tab Subl) 0.4 mg SL Q5M PRN PRN Reason: Chest Pain Ondansetron HCl (Ondansetron 4 Mg/2 Ml Inj) 4 mg IV Q8H PRN PRN Reason: Nausea And Vomiting Oxycodone/Acetaminophen (Oxycodone /Acetaminophen 5-325mg Tab) 1 tab PO Q6H PRN PRN Reason: Pain, Moderate (4-6) Last Admin: 12/18/20 07:57 Dose: 1 tab Documented by: Senna (Sennosides 8.6 Mg Tab) 8.6 mg PO Q12HR PRN PRN Reason: Constipation Sodium Chloride (Sodium Chloride 0.9% 10 Ml Flush Syringe) 10 ml IV BID [facility] Last Admin: 12/18/20 11:16 Dose: 10 ml Documented by: Sodium Chloride (Sodium Chloride 0.9% 10 Ml Flush Syringe) 10 ml IV PRN PRN PRN Reason: LINE FLUSH Sucralfate (Sucralfate 1 Gm/10 Ml Oral Liqd) 1 gm PO Q6HR PRN PRN Reason: Dyspepsia Tramadol HCl (Tramadol 50 Mg Tab) 50 mg PO Q6H PRN PRN Reason: Pain, Moderate (4-6) Review of Systems All systems: negative Constitutional: no weight loss, no weight gain, no fever, no chills Ears, nose, mouth and throat: headache, no nasal congestion, no nasal discharge, no sinus pressure, no sinus pain Cardiovascular: chest pain, no orthopnea, no palpitations, no rapid/irregular heart beat, no edema Respiratory: no cough, no cough with sputum, no excessive sputum, no hemoptysis, no shortness of breath, no dyspnea on exertion Gastrointestinal: no abdominal pain, no nausea, no vomiting, no diarrhea Musculoskeletal: no neck stiffness, no neck pain, no shooting arm pain, no arm numbness/tingling Integumentary: no rash, no pruritis, no redness Neurological: no head injury, no transient paralysis, no paralysis, no weakness Psychiatric: no anxiety, no memory loss Endocrine: no cold intolerance, no heat intolerance Hematologic/Lymphatic: no easy bruising, no easy bleeding Physical Examination Last Vital Signs Temp 98.2 F 12/17/20 17:31 Pulse 79 12/18/20 12:15 Resp 17 12/18/20 12:15 BP 184/111 12/18/20 12:41 Pulse Ox 100 12/18/20 12:15 General appearance: no acute distress HEENT: Positive: PERRL Neck: Positive: trachea midline Cardiac: Positive: Reg Rate and Rhythm Lungs: Positive: clear to auscultation, Normal Breath Sounds Neuro: Positive: Grossly Intact Abdomen: Positive: Soft, Active Bowel Sounds Skin: Negative: Rash, Suspicious Lesions, Ulceration Extremities: Present: upper extr. pulses, lower extr. pulses. Absent: edema Results 12/18/20 03:59 12/18/20 03:59 Cardiac Enzymes 12/18/20 Range/Units 03:59 AST 11 (5-40) units/L Lipids 12/18/20 Range/Units 03:59 Triglycerides 405 H (2-149) mg/dL Cholesterol 288 H (50-199) mg/dL HDL Cholesterol 38 L (40-59) mg/dL Cholesterol/HDL Ratio 7.57 % CBC 12/17/20 12/18/20 12/18/20 Range/Units 18:00 00:00 03:59 WBC 9.0 9.8 9.8 (4.5-11.0) K/mm3 RBC 4.96 5.10 H 4.80 (3.65-5.03) M/mm3 Hgb 14.8 H 15.4 H 14.6 H (10.1-14.3) gm/dl Hct 44.0 H 44.7 H 42.6 (30.3-42.9) % Plt Count 294 294 268 (140-440) K/mm3 Lymph # (Auto) 3.6 3.9 3.5 (1.2-5.4) K/mm3 [place] # (Auto) 0.6 0.7 0.9 H (0.0-0.8) K/mm3 Eos # (Auto) 0.2 0.1 0.1 (0.0-0.4) K/mm3 Baso # (Auto) 0.0 0.1 0.0 (0.0-0.1) K/mm3 Comprehensive Metabolic Panel 12/17/20 12/18/20 12/18/20 Range/Units 18:00 00:00 03:59 Sodium 138 138 137 (137-145) mmol/L Potassium 4.2 3.6 3.7 (3.6-5.0) mmol/L Chloride 105.2 103.7 102.8 (98-107) mmol/L Carbon Dioxide 22 23 26 (22-30) mmol/L BUN 12 9 12 (7-17) mg/dL Creatinine 0.6 0.6 0.7 (0.6-1.2) mg/dL Glucose 105 H 112 H 118 H (65-100) mg/dL Calcium 9.2 9.1 9.3 (8.4-10.2) mg/dL AST 11 (5-40) units/L ALT 10 (7-56) units/L Alkaline Phosphatase 55 (35-129) units/L Total Protein 7.1 (6.3-8.2) g/dL Albumin 3.4 L (3.9-5) g/dL - Imaging and Cardiology Echo: pending EKG: report reviewed, image reviewed EKG interpretations - Telemetry EKG Rhythm: Sinus Rhythm - EKG Sinus rhythms and dysrhythmias: sinus rhythm Assessment and Plan Hypertensive urgency Chest pain * EKG show sinus 84 with no acute ischemic changes. Troponins negative x2. AMI ruled out * Agree with nifedipine 90mg PO QD * Restarted home HTN medications: metoprolol 25mg PO BID and hydralazine 50mg PO BID * Due to patients risk factors for heart disease : HTN, smoker, fmhx plan for Lexiscan stress MPI test on Monday * Echo Pending DM * Management per primary team Stress test Monday. Optimize antihypertensive regimen: Titrate BP meds as needed Patient seen in conjunction with Dr. Potts who agrees with this plan of care. Will continue to follow - Patient Problems (1) Hypertensive urgency Current Visit: Yes Status: Acute (2) Acute chest pain Current Visit: Yes Status: Acute (3) Obesity (BMI 30-39.9) Current Visit: Yes Status: Acute (4) Tobacco use Current Visit: Yes Status: Acute
--- NOTE | 2020-12-18 15:34 | Progress Note ---
Assessment and Plan Assessment and plan: --Chest pain Current Visit: Yes Status: Acute Serial cardiac enzymes, EKG Echocardiogram for LV function ejection fraction Aspirin beta-blockers, CAMERON inhibitors, nitrates, statins Cardiology evaluation noted and appreciated Stable stress test on Monday --Hypertensive urgency/ Current Visit: Yes Status: Acute Moderate control , continue current antihypertensives As needed medications --Hyperglycemia/borderline diabetes A1c 6.6 Current Visit: Yes Status: Acute Accu-Chek, sliding scale coverage, ADA diet Long-acting insulin if needed Diabetic diet, diabetic and nutrition education --Dyslipidemia; Current Visit: Yes Status: Acute Low-cholesterol diet, lipid-lowering medications Closely monitor --Morbid obesity (BMI 42.3) Current Visit: Yes Status: Acute Dietary modification, exercise as tolerated, lifestyle changes Weight reduction when medically stable Patient may benefit from bariatric outpatient consultation For weight reduction program when medically stable --Ongoing tobacco use; Current Visit: Yes Status: Acute Smoking cessation counseling done Risks and consequences and complications of Chronic smoking explained to the patient Advised nicotine patch as needed Patient verbalized understanding -- DVT prophylaxis Current Visit: Yes Status: Acute Subcutaneous Lovenox We will closely monitor the patient and adjust management as needed Plan of care reviewed with the patient and her nurse Cardiology evaluation recommendations noted and appreciated Disposition; follow stress test on Monday Follow clinically, discharge in 1 to 2 days if stable History Interval history: Have seen and examined the patient at the bedside Patient's chart and medications reviewed Patient can planes of intermittent mild chest pain Significantly improved Hospitalist Physical - Constitutional Vitals: Temp Pulse Resp BP Pulse Ox 98.2 F 89 22 163/101 97 12/17/20 17:31 12/18/20 13:31 12/18/20 14:31 12/18/20 14:31 12/18/20 14:31 General appearance: Present: no acute distress, well-nourished, obese (Morbidly obese) - EENT Eyes: Present: PERRL, EOM intact - Neck Neck: Present: supple, normal ROM - Respiratory Respiratory effort: normal Respiratory: bilateral: diminished, negative: rales, rhonchi, wheezing - Cardiovascular Rhythm: regular Heart Sounds: Present: S1 & S2 - Extremities Extremities: no ischemia, No edema - Abdominal General gastrointestinal: soft, non-tender, non-distended, normal bowel sounds - Integumentary Integumentary: Present: clear, warm - Psychiatric Psychiatric: appropriate mood/affect, cooperative - Neurologic Neurologic: moves all extremities HEART Score - HEART Score EKG: Non-specific Age: < 45 Risk factors: > 3 risk factors or hx of atherosclerotic disease (Tobacco, Brother ID at 45 yoa, HTN) Troponin: Troponin T < 0.010 ng/mL (0.00-0.029) 12/17/20 23:45 Troponin: < normal limit - Critical Actions Critical Actions: 4-6 pts:12-16.6% risk of adverse cardiac event. Should be admitted Results - Labs CBC & Chem 7: 12/18/20 03:59 12/18/20 03:59 Labs: Laboratory Last Values WBC 9.8 K/mm3 (4.5-11.0) 12/18/20 03:59 RBC 4.80 M/mm3 (3.65-5.03) 12/18/20 03:59 Hgb 14.6 gm/dl (10.1-14.3) H 12/18/20 03:59 Hct 42.6 % (30.3-42.9) 12/18/20 03:59 MCV 89 fl (79-97) 12/18/20 03:59 MCH 31 pg (28-32) 12/18/20 03:59 MCHC 34 % (30-34) 12/18/20 03:59 RDW 15.5 % (13.2-15.2) H 12/18/20 03:59 Plt Count 268 K/mm3 (140-440) 12/18/20 03:59 Lymph % (Auto) 35.7 % (13.4-35.0) H 12/18/20 03:59 [place] % (Auto) 9.0 % (0.0-7.3) H 12/18/20 03:59 Eos % (Auto) 1.3 % (0.0-4.3) 12/18/20 03:59 Baso % (Auto) 0.5 % (0.0-1.8) 12/18/20 03:59 Lymph # (Auto) 3.5 K/mm3 (1.2-5.4) 12/18/20 03:59 [place] # (Auto) 0.9 K/mm3 (0.0-0.8) H 12/18/20 03:59 Eos # (Auto) 0.1 K/mm3 (0.0-0.4) 12/18/20 03:59 Baso # (Auto) 0.0 K/mm3 (0.0-0.1) 12/18/20 03:59 Seg Neutrophils % 53.5 % (40.0-70.0) 12/18/20 03:59 Seg Neutrophils # 5.2 K/mm3 (1.8-7.7) 12/18/20 03:59 Sodium 137 mmol/L (137-145) 12/18/20 03:59 Potassium 3.7 mmol/L (3.6-5.0) 12/18/20 03:59 Chloride 102.8 mmol/L (98-107) 12/18/20 03:59 Carbon Dioxide 26 mmol/L (22-30) 12/18/20 03:59 Anion Gap 12 mmol/L 12/18/20 03:59 BUN 12 mg/dL (7-17) 12/18/20 03:59 Creatinine 0.7 mg/dL (0.6-1.2) 12/18/20 03:59 Estimated GFR > 60 ml/min 12/18/20 03:59 BUN/Creatinine Ratio 17 % 12/18/20 03:59 Glucose 118 mg/dL (65-100) H 12/18/20 03:59 POC Glucose 129 mg/dL (70-105) H 12/18/20 11:25 Hemoglobin A1c 6.6 % (4-6) H 12/18/20 00:00 Calcium 9.3 mg/dL (8.4-10.2) 12/18/20 03:59 Total Bilirubin 0.30 mg/dL (0.1-1.2) 12/18/20 03:59 AST 11 units/L (5-40) 12/18/20 03:59 ALT 10 units/L (7-56) 12/18/20 03:59 Alkaline Phosphatase 55 units/L (35-129) 12/18/20 03:59 Troponin T < 0.010 ng/mL (0.00-0.029) 12/17/20 23:45 Total Protein 7.1 g/dL (6.3-8.2) 12/18/20 03:59 Albumin 3.4 g/dL (3.9-5) L 12/18/20 03:59 Albumin/Globulin Ratio 0.9 % 12/18/20 03:59 Triglycerides 405 mg/dL (2-149) H 12/18/20 03:59 Cholesterol 288 mg/dL (50-199) H 12/18/20 03:59 LDL Cholesterol Direct TNR 12/18/20 03:59 HDL Cholesterol 38 mg/dL (40-59) L 12/18/20 03:59 Cholesterol/HDL Ratio 7.57 % 12/18/20 03:59 Urine Color Straw (Yellow) 12/18/20 00:49 Urine Turbidity Clear (Clear) 12/18/20 00:49 Urine pH 6.0 (5.0-7.0) 12/18/20 00:49 Ur Specific [place] 1.009 (1.003-1.030) 12/18/20 00:49 Urine Protein >500 mg/dL (Negative) 12/18/20 00:49 Urine Glucose (UA) Neg mg/dL (Negative) 12/18/20 00:49 Urine Ketones Neg mg/dL (Negative) 12/18/20 00:49 Urine Blood Neg (Negative) 12/18/20 00:49 Urine Nitrite Neg (Negative) 12/18/20 00:49 Urine Bilirubin Neg (Negative) 12/18/20 00:49 Urine Urobilinogen < 2.0 mg/dL (<2.0) 12/18/20 00:49 Ur Leukocyte Esterase Neg (Negative) 12/18/20 00:49 Urine WBC (Auto) < 1.0 /HPF (0.0-6.0) 12/18/20 00:49 Urine RBC (Auto) 2.0 /HPF (0.0-6.0) 12/18/20 00:49 U Epithel Cells (Auto) 1.0 /HPF (0-13.0) 12/18/20 00:49 Urine Bacteria (Auto) 1+ /HPF (Negative) 12/18/20 00:49 Active Medications - Current Medications Current Medications: Generic Name Dose Route Start Last Admin Trade Name Freq PRN Reason Stop Dose Admin Acetaminophen 650 mg 12/17/20 23:39 Acetaminophen 325 Mg Tab PO Q4H PRN Pain MILD(1-3)/Fever >100.5/ORDONEZ Al Hydrox/Mg Hydrox/Simethicone 30 ml 12/17/20 23:39 Alum-Mag Hydroxide-Simethicone [phone]/5ml Oral Liqd 30 Ml PO Q4H PRN Indigestion Aspirin 81 mg 12/18/20 10:00 12/18/20 11:15 Aspirin 81 Mg Tab Chew PO 81 mg QDAY NENA Administration Atorvastatin Calcium 40 mg 12/18/20 22:00 Atorvastatin 40 Mg Tab PO QHS NENA Bupropion HCl 100 mg 12/18/20 10:00 12/18/20 11:15 Bupropion Sr 100 Mg Tab PO 100 mg DAILY NENA Administration Enoxaparin Sodium 40 mg 12/18/20 10:00 12/18/20 11:16 Enoxaparin 40 Mg/0.4 Ml Inj SUB-Q 40 mg QDAY [facility] Administration Famotidine 20 mg 12/18/20 10:00 12/18/20 11:15 Famotidine 20 Mg/2 Ml Inj IV 20 mg BID NENA Administration Gabapentin 300 mg 12/18/20 22:00 Gabapentin 300 Mg Cap PO QHS [facility] Hydralazine HCl 50 mg 12/18/20 13:00 12/18/20 12:41 Hydralazine 25 Mg Tab PO 50 mg BID NENA Administration Ibuprofen 600 mg 12/17/20 23:39 Ibuprofen 600 Mg Tab PO Q6H PRN Pain, Mild (1-3) Insulin Human Lispro 0 unit 12/18/20 07:30 12/18/20 11:25 Insulin Lispro 100 Unit/Ml SUB-Q Not Given ACHS [facility] Protocol Magnesium Hydroxide 30 ml 12/17/20 23:39 Magnesium Hydroxide (Mom) Oral Liqd Udc PO Q4H PRN Constipation Metoclopramide HCl 10 mg 12/17/20 23:39 Metoclopramide 10 Mg/2 Ml Inj IV Q6H PRN Nausea And Vomiting Metoprolol Tartrate 25 mg 12/18/20 13:00 12/18/20 12:41 Metoprolol Tartrate 25 Mg Tab PO 25 mg BID NENA Administration Miscellaneous Medication 1 tab 12/18/20 10:00 Bisoprolol/Hctz PO DAILY [facility] Naloxone HCl 0.1 mg 12/17/20 23:39 Naloxone 0.4 Mg/1 Ml Inj IV Q2MIN PRN Res Rate </= 8 or 02 SAT < 92% Nifedipine 90 mg 12/18/20 10:00 12/18/20 11:15 Nifedipine Xl 90 Mg Tab PO 90 mg DAILY [facility] Administration Nitroglycerin 0.4 mg 12/17/20 23:39 Nitroglycerin 0.4 Mg Tab Subl SL Q5M PRN Chest Pain Ondansetron HCl 4 mg 12/17/20 23:39 Ondansetron 4 Mg/2 Ml Inj IV Q8H PRN Nausea And Vomiting Oxycodone/Acetaminophen 1 tab 12/17/20 23:39 12/18/20 07:57 Oxycodone /Acetaminophen 5-325mg Tab PO 1 tab Q6H PRN Administration Pain, Moderate (4-6) Senna 8.6 mg 12/17/20 23:39 Sennosides 8.6 Mg Tab PO Q12HR PRN Constipation Sodium Chloride 10 ml 12/18/20 10:00 12/18/20 11:16 Sodium Chloride 0.9% 10 Ml Flush Syringe IV 10 ml BID [facility] Administration Sodium Chloride 10 ml 12/17/20 23:39 Sodium Chloride 0.9% 10 Ml Flush Syringe IV PRN PRN LINE FLUSH Sucralfate 1 gm 12/18/20 00:12 Sucralfate 1 Gm/10 Ml Oral Liqd PO Q6HR PRN Dyspepsia Tramadol HCl 50 mg 12/17/20 23:39 Tramadol 50 Mg Tab PO Q6H PRN Pain, Moderate (4-6)
[2020-12-18] MEDS: GABAPENTIN 300 MG CAP PO SCH (21:45)
--- NOTE | 2020-12-19 08:32 | Progress Note ---
Assessment and Plan Assessment and plan: --Chest pain Current Visit: Yes Status: Acute Serial cardiac enzymes, EKG Echocardiogram for LV function ejection fraction Aspirin beta-blockers, CAMERON inhibitors, nitrates, statins Cardiology evaluation noted and appreciated Stable stress test on Monday Per cardiology Chest pain * EKG show sinus 84 with no acute ischemic changes. Troponins negative x2. AMI ruled out * Agree with nifedipine 90mg PO QD * Restarted home HTN medications: metoprolol 25mg PO BID and hydralazine 50mg PO BID * Due to patients risk factors for heart disease : HTN, smoker, fmhx plan for Lexiscan stress MPI test on Monday * Echo Pending Stress test Monday. Optimize antihypertensive regimen: Titrate BP meds as needed --Hypertensive urgency/ Current Visit: Yes Status: Acute Moderate control , continue current antihypertensives As needed medications --Hyperglycemia/borderline diabetes A1c 6.6 Current Visit: Yes Status: Acute Accu-Chek, sliding scale coverage, ADA diet Long-acting insulin if needed Diabetic diet, diabetic and nutrition education --Dyslipidemia; Current Visit: Yes Status: Acute Low-cholesterol diet, lipid-lowering medications Closely monitor --Morbid obesity (BMI 42.3) Current Visit: Yes Status: Acute Dietary modification, exercise as tolerated, lifestyle changes Weight reduction when medically stable Patient may benefit from bariatric outpatient consultation For weight reduction program when medically stable --Ongoing tobacco use; Current Visit: Yes Status: Acute Smoking cessation counseling done Risks and consequences and complications of Chronic smoking explained to the patient Advised nicotine patch as needed Patient verbalized understanding -- DVT prophylaxis Current Visit: Yes Status: Acute Subcutaneous Lovenox We will closely monitor the patient and adjust management as needed Plan of care reviewed with the patient and her nurse Cardiology evaluation recommendations noted and appreciated Disposition; follow stress test on Monday Follow clinically, discharge on monday if negative stress test 12/19: Will adjust BP meds if stable. Hydralazine had not been started, this was started and hopefully will help with the diastolic hypertension smoking cessation re-emphasized. History Interval history: Patient seen and examined no acute respiratory distress no chest pain at this time. Hospitalist Physical - Physical exam Narrative exam: VITAL SIGNS: Reviewed. GENERAL: The patient appears normally developed, Vital signs as documented. HEAD: No signs of head trauma. EYES: Pupils are equal. Extraocular motions intact. EARS: Hearing grossly intact. MOUTH: Oropharynx is normal. NECK: No adenopathy, no JVD. CHEST: Chest with clear breath sounds bilaterally. No wheezes, rales, or rhonchi. CARDIAC: Regular rate and rhythm. S1 and S2, without murmurs, gallops, or rubs. VASCULAR: No Edema. Peripheral pulses normal and equal in all extremities. ABDOMEN: Soft, non tender and non distended. No rebound or guarding, and no masses palpated. Bowel Sounds normal. MUSCULOSKELETAL: Good range of motion of all major joints. Extremities without clubbing, cyanosis or edema. NEUROLOGIC EXAM: Alert and oriented x 3 No focal sensory or strength deficits. Speech normal. Follows commands. PSYCHIATRIC: Mood normal. SKIN: detail exam as documented in skin assessment - Constitutional Vitals: Temp Pulse Resp BP Pulse Ox 98.0 F 78 18 156/100 92 12/19/20 04:46 12/19/20 04:46 12/19/20 04:46 12/19/20 04:46 12/19/20 04:46 General appearance: Present: no acute distress, well-nourished, obese (Morbidly obese) HEART Score - HEART Score EKG: Non-specific Age: < 45 Risk factors: > 3 risk factors or hx of atherosclerotic disease (Tobacco, Brother OR at 45 yoa, HTN) Troponin: Troponin T < 0.010 ng/mL (0.00-0.029) 12/17/20 23:45 Troponin: < normal limit - Critical Actions Critical Actions: 4-6 pts:12-16.6% risk of adverse cardiac event. Should be admitted Results - Labs CBC & Chem 7: 12/18/20 03:59 12/18/20 03:59 Labs: Laboratory Last Values WBC 9.8 K/mm3 (4.5-11.0) 12/18/20 03:59 RBC 4.80 M/mm3 (3.65-5.03) 12/18/20 03:59 Hgb 14.6 gm/dl (10.1-14.3) H 12/18/20 03:59 Hct 42.6 % (30.3-42.9) 12/18/20 03:59 MCV 89 fl (79-97) 12/18/20 03:59 MCH 31 pg (28-32) 12/18/20 03:59 MCHC 34 % (30-34) 12/18/20 03:59 RDW 15.5 % (13.2-15.2) H 12/18/20 03:59 Plt Count 268 K/mm3 (140-440) 12/18/20 03:59 Lymph % (Auto) 35.7 % (13.4-35.0) H 12/18/20 03:59 [place] % (Auto) 9.0 % (0.0-7.3) H 12/18/20 03:59 Eos % (Auto) 1.3 % (0.0-4.3) 12/18/20 03:59 Baso % (Auto) 0.5 % (0.0-1.8) 12/18/20 03:59 Lymph # (Auto) 3.5 K/mm3 (1.2-5.4) 12/18/20 03:59 [place] # (Auto) 0.9 K/mm3 (0.0-0.8) H 12/18/20 03:59 Eos # (Auto) 0.1 K/mm3 (0.0-0.4) 12/18/20 03:59 Baso # (Auto) 0.0 K/mm3 (0.0-0.1) 12/18/20 03:59 Seg Neutrophils % 53.5 % (40.0-70.0) 12/18/20 03:59 Seg Neutrophils # 5.2 K/mm3 (1.8-7.7) 12/18/20 03:59 Sodium 137 mmol/L (137-145) 12/18/20 03:59 Potassium 3.7 mmol/L (3.6-5.0) 12/18/20 03:59 Chloride 102.8 mmol/L (98-107) 12/18/20 03:59 Carbon Dioxide 26 mmol/L (22-30) 12/18/20 03:59 Anion Gap 12 mmol/L 12/18/20 03:59 BUN 12 mg/dL (7-17) 12/18/20 03:59 Creatinine 0.7 mg/dL (0.6-1.2) 12/18/20 03:59 Estimated GFR > 60 ml/min 12/18/20 03:59 BUN/Creatinine Ratio 17 % 12/18/20 03:59 Glucose 118 mg/dL (65-100) H 12/18/20 03:59 POC Glucose 151 mg/dL (70-105) H 12/18/20 17:21 Hemoglobin A1c 6.6 % (4-6) H 12/18/20 00:00 Calcium 9.3 mg/dL (8.4-10.2) 12/18/20 03:59 Total Bilirubin 0.30 mg/dL (0.1-1.2) 12/18/20 03:59 AST 11 units/L (5-40) 12/18/20 03:59 ALT 10 units/L (7-56) 12/18/20 03:59 Alkaline Phosphatase 55 units/L (35-129) 12/18/20 03:59 Troponin T < 0.010 ng/mL (0.00-0.029) 12/17/20 23:45 Total Protein 7.1 g/dL (6.3-8.2) 12/18/20 03:59 Albumin 3.4 g/dL (3.9-5) L 12/18/20 03:59 Albumin/Globulin Ratio 0.9 % 12/18/20 03:59 Triglycerides 405 mg/dL (2-149) H 12/18/20 03:59 Cholesterol 288 mg/dL (50-199) H 12/18/20 03:59 LDL Cholesterol Direct TNR 12/18/20 03:59 HDL Cholesterol 38 mg/dL (40-59) L 12/18/20 03:59 Cholesterol/HDL Ratio 7.57 % 12/18/20 03:59 Urine Color Straw (Yellow) 12/18/20 00:49 Urine Turbidity Clear (Clear) 12/18/20 00:49 Urine pH 6.0 (5.0-7.0) 12/18/20 00:49 Ur Specific [place] 1.009 (1.003-1.030) 12/18/20 00:49 Urine Protein >500 mg/dL (Negative) 12/18/20 00:49 Urine Glucose (UA) Neg mg/dL (Negative) 12/18/20 00:49 Urine Ketones Neg mg/dL (Negative) 12/18/20 00:49 Urine Blood Neg (Negative) 12/18/20 00:49 Urine Nitrite Neg (Negative) 12/18/20 00:49 Urine Bilirubin Neg (Negative) 12/18/20 00:49 Urine Urobilinogen < 2.0 mg/dL (<2.0) 12/18/20 00:49 Ur Leukocyte Esterase Neg (Negative) 12/18/20 00:49 Urine WBC (Auto) < 1.0 /HPF (0.0-6.0) 12/18/20 00:49 Urine RBC (Auto) 2.0 /HPF (0.0-6.0) 12/18/20 00:49 U Epithel Cells (Auto) 1.0 /HPF (0-13.0) 12/18/20 00:49 Urine Bacteria (Auto) 1+ /HPF (Negative) 12/18/20 00:49 Fernandez/IV: Voiding Method Toilet Active Medications - Current Medications Current Medications: Generic Name Dose Route Start Last Admin Trade Name Freq PRN Reason Stop Dose Admin Acetaminophen 650 mg 12/17/20 23:39 Acetaminophen 325 Mg Tab PO Q4H PRN Pain MILD(1-3)/Fever >100.5/ORDONEZ Al Hydrox/Mg Hydrox/Simethicone 30 ml 12/17/20 23:39 Alum-Mag Hydroxide-Simethicone [id number]/5ml Oral Liqd 30 Ml PO Q4H PRN Indigestion Aspirin 81 mg 12/18/20 10:00 12/18/20 11:15 Aspirin 81 Mg Tab Chew PO 81 mg QDAY NENA Administration Atorvastatin Calcium 40 mg 12/18/20 22:00 12/18/20 21:45 Atorvastatin 40 Mg Tab PO 40 mg QHS NENA Administration Bupropion HCl 100 mg 12/18/20 10:00 12/18/20 11:15 Bupropion Sr 100 Mg Tab PO 100 mg DAILY NENA Administration Enoxaparin Sodium 40 mg 12/18/20 10:00 12/18/20 11:16 Enoxaparin 40 Mg/0.4 Ml Inj SUB-Q 40 mg QDAY NENA Administration Famotidine 20 mg 12/18/20 10:00 12/18/20 21:45 Famotidine 20 Mg/2 Ml Inj IV 20 mg BID NENA Administration Gabapentin 300 mg 12/18/20 22:00 12/18/20 21:45 Gabapentin 300 Mg Cap PO 300 mg QHS NENA Administration Ibuprofen 600 mg 12/17/20 23:39 12/18/20 21:46 Ibuprofen 600 Mg Tab PO 600 mg Q6H PRN Administration Pain, Mild (1-3) Insulin Human Lispro 0 unit 12/18/20 07:30 12/18/20 21:45 Insulin Lispro 100 Unit/Ml SUB-Q Not Given ACHS [facility] Protocol Lisinopril 40 mg 12/19/20 10:00 Lisinopril 40 Mg Tab PO QDAY [facility] Magnesium Hydroxide 30 ml 12/17/20 23:39 Magnesium Hydroxide (Mom) Oral Liqd Udc PO Q4H PRN Constipation Metoclopramide HCl 10 mg 12/17/20 23:39 Metoclopramide 10 Mg/2 Ml Inj IV Q6H PRN Nausea And Vomiting Metoprolol Tartrate 50 mg 12/19/20 09:00 Metoprolol Tartrate 25 Mg Tab PO Q6H [facility] Miscellaneous Medication 1 tab 12/18/20 10:00 Bisoprolol/Hctz PO DAILY [facility] Naloxone HCl 0.1 mg 12/17/20 23:39 Naloxone 0.4 Mg/1 Ml Inj IV Q2MIN PRN Res Rate </= 8 or 02 SAT < 92% Nifedipine 90 mg 12/18/20 10:00 12/18/20 11:15 Nifedipine Xl 90 Mg Tab PO 90 mg DAILY [facility] Administration Nitroglycerin 0.4 mg 12/17/20 23:39 Nitroglycerin 0.4 Mg Tab Subl SL Q5M PRN Chest Pain Ondansetron HCl 4 mg 12/17/20 23:39 Ondansetron 4 Mg/2 Ml Inj IV Q8H PRN Nausea And Vomiting Oxycodone/Acetaminophen 1 tab 12/17/20 23:39 12/18/20 23:11 Oxycodone /Acetaminophen 5-325mg Tab PO 1 tab Q6H PRN Administration Pain, Moderate (4-6) Senna 8.6 mg 12/17/20 23:39 Sennosides 8.6 Mg Tab PO Q12HR PRN Constipation Sodium Chloride 10 ml 12/18/20 10:00 12/18/20 21:45 Sodium Chloride 0.9% 10 Ml Flush Syringe IV 10 ml BID NENA Administration Sodium Chloride 10 ml 12/17/20 23:39 Sodium Chloride 0.9% 10 Ml Flush Syringe IV PRN PRN LINE FLUSH Sucralfate 1 gm 12/18/20 00:12 Sucralfate 1 Gm/10 Ml Oral Liqd PO Q6HR PRN Dyspepsia Tramadol HCl 50 mg 12/17/20 23:39 Tramadol 50 Mg Tab PO Q6H PRN Pain, Moderate (4-6)
[2020-12-19] MEDS: INSULIN LISPRO 100 UNIT/ML SUB-Q SCH ×4 (09:50→22:13)
[2020-12-19] MEDS: NIFEdipine XL 90 MG TAB PO SCH (09:50)
[2020-12-19] MEDS: ENOXAPARIN 40 MG/0.4 ML INJ SUB-Q SCH (09:50)
[2020-12-19] MEDS: hydrALAZINE 25 MG TAB PO SCH ×2 (09:51→23:37)
[2020-12-19] MEDS: LISINOPRIL 40 MG TAB PO SCH ×2 (09:51→09:53)
[2020-12-19] MEDS: METOPROLOL TARTRATE 25 MG TAB PO SCH ×3 (09:51→23:36)
[2020-12-19] MEDS: ASPIRIN 81 MG TAB CHEW PO SCH (09:51)
[2020-12-19] MEDS: FAMOTIDINE 20 MG/2 ML INJ IV SCH ×2 (09:52→22:14)
[2020-12-19] MEDS: buPROPion SR 100 MG TAB PO SCH (09:58)
[2020-12-19] MEDS ORDERED: NON-FORMULARY EACH (Hydralazine Hcl [Hydralazine Hcl] 50 MG Tablet) PO SCH (10:00)
--- NOTE | 2020-12-19 11:14 | Progress Note ---
Assessment and Plan Will optimize antihypertensive regimen. Lexiscan stress MPI on Monday morning. - Patient Problems (1) Chest pain Current Visit: Yes Status: Acute (2) Hypertensive urgency Current Visit: Yes Status: Acute (3) Diabetes mellitus Current Visit: Yes Status: Chronic Qualifiers: Diabetes mellitus type: type 2 Subjective Date of service: 12/19/20 Principal diagnosis: CP, HTNsive urgency Interval history: She experienced chest pain yesterday. No chest pain so far today. Objective Vital Signs Last Vital Signs Temp 98.0 F 12/19/20 04:46 Pulse 84 12/19/20 09:45 Resp 18 12/19/20 09:45 BP 149/91 12/19/20 09:45 Pulse Ox 100 12/19/20 09:45 - Physical Examination General: No Apparent Distress HEENT: Positive: EOMI, Normocephaly, Mucus Membranes Moist Neck: Positive: trachea midline Cardiac: Positive: Reg Rate and Rhythm, S1/S2 Lungs: Positive: clear to auscultation Neuro: Positive: Grossly Intact Abdomen: Positive: Soft, Active Bowel Sounds. Negative: Tender Skin: Negative: Rash Musculoskeletal: Normal Range of Motion Extremities: Absent: edema - Imaging and Cardiology Echo: pending - Telemetry EKG Rhythm: Sinus Tachycardia
[2020-12-19] MEDS: GABAPENTIN 300 MG CAP PO SCH (23:41)
[2020-12-20] MEDS: METOPROLOL TARTRATE 25 MG TAB PO SCH ×4 (03:35→23:13)
--- NOTE | 2020-12-20 08:17 | Progress Note ---
Assessment and Plan Assessment and plan: --Chest pain Current Visit: Yes Status: Acute Serial cardiac enzymes, EKG Echocardiogram for LV function ejection fraction Aspirin beta-blockers, CAMERON inhibitors, nitrates, statins Cardiology evaluation noted and appreciated Stable stress test on Monday Per cardiology Chest pain * EKG show sinus 84 with no acute ischemic changes. Troponins negative x2. AMI ruled out * Agree with nifedipine 90mg PO QD * Restarted home HTN medications: metoprolol 25mg PO BID and hydralazine 50mg PO BID * Due to patients risk factors for heart disease : HTN, smoker, fmhx plan for Lexiscan stress MPI test on Monday * Echo Pending Stress test Monday. Optimize antihypertensive regimen: Titrate BP meds as needed --Hypertensive urgency/ Current Visit: Yes Status: Acute Moderate control , continue current antihypertensives As needed medications --Hyperglycemia/borderline diabetes A1c 6.6 Current Visit: Yes Status: Acute Accu-Chek, sliding scale coverage, ADA diet Long-acting insulin if needed Diabetic diet, diabetic and nutrition education --Dyslipidemia; Current Visit: Yes Status: Acute Low-cholesterol diet, lipid-lowering medications Closely monitor --Morbid obesity (BMI 42.3) Current Visit: Yes Status: Acute Dietary modification, exercise as tolerated, lifestyle changes Weight reduction when medically stable Patient may benefit from bariatric outpatient consultation For weight reduction program when medically stable --Ongoing tobacco use; Current Visit: Yes Status: Acute Smoking cessation counseling done Risks and consequences and complications of Chronic smoking explained to the patient Advised nicotine patch as needed Patient verbalized understanding -- DVT prophylaxis Current Visit: Yes Status: Acute Subcutaneous Lovenox We will closely monitor the patient and adjust management as needed Plan of care reviewed with the patient and her nurse Cardiology evaluation recommendations noted and appreciated Disposition; follow stress test on Monday Follow clinically, discharge on monday if negative stress test 12/19: Will adjust BP meds if stable. Hydralazine had not been started, this was started and hopefully will help with the diastolic hypertension smoking cessation re-emphasized. 12/20: Blood pressure has stabilized despite refusing lisinopril as she says that this makes her cough. Said result lisinopril has been discontinued. She also refuses Wellbutrin says she has not taken that medication long-term and does not feel she needs it. Patient is for stress test in a.m. considering risk factors. History Interval history: Patient seen and examined no acute respiratory distress no chest pain at this time. Hospitalist Physical - Physical exam Narrative exam: VITAL SIGNS: Reviewed. GENERAL: The patient appears normally developed, Vital signs as documented. HEAD: No signs of head trauma. EYES: Pupils are equal. Extraocular motions intact. EARS: Hearing grossly intact. MOUTH: Oropharynx is normal. NECK: No adenopathy, no JVD. CHEST: Chest with clear breath sounds bilaterally. No wheezes, rales, or rhonchi. CARDIAC: Regular rate and rhythm. S1 and S2, without murmurs, gallops, or rubs. VASCULAR: No Edema. Peripheral pulses normal and equal in all extremities. ABDOMEN: Soft, non tender and non distended. No rebound or guarding, and no masses palpated. Bowel Sounds normal. MUSCULOSKELETAL: Good range of motion of all major joints. Extremities without clubbing, cyanosis or edema. NEUROLOGIC EXAM: Alert and oriented x 3 No focal sensory or strength deficits. Speech normal. Follows commands. PSYCHIATRIC: Mood normal. SKIN: detail exam as documented in skin assessment - Constitutional Vitals: Temp Pulse Resp BP Pulse Ox 97.9 F 70 18 148/92 97 12/20/20 04:45 12/20/20 04:45 12/20/20 04:45 12/20/20 04:45 12/20/20 04:45 General appearance: Present: no acute distress, well-nourished, obese (Morbidly obese) HEART Score - HEART Score EKG: Non-specific Age: < 45 Risk factors: > 3 risk factors or hx of atherosclerotic disease (Tobacco, Brother [place] at 44 yoa, HTN) Troponin: Troponin T < 0.010 ng/mL (0.00-0.029) 12/17/20 23:45 Troponin: < normal limit - Critical Actions Critical Actions: 4-6 pts:12-16.6% risk of adverse cardiac event. Should be admitted Results - Labs CBC & Chem 7: 12/18/20 03:59 12/18/20 03:59 Labs: Laboratory Last Values WBC 9.8 K/mm3 (4.5-11.0) 12/18/20 03:59 RBC 4.80 M/mm3 (3.65-5.03) 12/18/20 03:59 Hgb 14.6 gm/dl (10.1-14.3) H 12/18/20 03:59 Hct 42.6 % (30.3-42.9) 12/18/20 03:59 MCV 89 fl (79-97) 12/18/20 03:59 MCH 31 pg (28-32) 12/18/20 03:59 MCHC 34 % (30-34) 12/18/20 03:59 RDW 15.5 % (13.2-15.2) H 12/18/20 03:59 Plt Count 268 K/mm3 (140-440) 12/18/20 03:59 Lymph % (Auto) 35.7 % (13.4-35.0) H 12/18/20 03:59 [place] % (Auto) 9.0 % (0.0-7.3) H 12/18/20 03:59 Eos % (Auto) 1.3 % (0.0-4.3) 12/18/20 03:59 Baso % (Auto) 0.5 % (0.0-1.8) 12/18/20 03:59 Lymph # (Auto) 3.5 K/mm3 (1.2-5.4) 12/18/20 03:59 [place] # (Auto) 0.9 K/mm3 (0.0-0.8) H 12/18/20 03:59 Eos # (Auto) 0.1 K/mm3 (0.0-0.4) 12/18/20 03:59 Baso # (Auto) 0.0 K/mm3 (0.0-0.1) 12/18/20 03:59 Seg Neutrophils % 53.5 % (40.0-70.0) 12/18/20 03:59 Seg Neutrophils # 5.2 K/mm3 (1.8-7.7) 12/18/20 03:59 Sodium 137 mmol/L (137-145) 12/18/20 03:59 Potassium 3.7 mmol/L (3.6-5.0) 12/18/20 03:59 Chloride 102.8 mmol/L (98-107) 12/18/20 03:59 Carbon Dioxide 26 mmol/L (22-30) 12/18/20 03:59 Anion Gap 12 mmol/L 12/18/20 03:59 BUN 12 mg/dL (7-17) 12/18/20 03:59 Creatinine 0.7 mg/dL (0.6-1.2) 12/18/20 03:59 Estimated GFR > 60 ml/min 12/18/20 03:59 BUN/Creatinine Ratio 17 % 12/18/20 03:59 Glucose 118 mg/dL (65-100) H 12/18/20 03:59 POC Glucose 168 mg/dL (70-105) H 12/20/20 07:35 Hemoglobin A1c 6.6 % (4-6) H 12/18/20 00:00 Calcium 9.3 mg/dL (8.4-10.2) 12/18/20 03:59 Total Bilirubin 0.30 mg/dL (0.1-1.2) 12/18/20 03:59 AST 11 units/L (5-40) 12/18/20 03:59 ALT 10 units/L (7-56) 12/18/20 03:59 Alkaline Phosphatase 55 units/L (35-129) 12/18/20 03:59 Troponin T < 0.010 ng/mL (0.00-0.029) 12/17/20 23:45 Total Protein 7.1 g/dL (6.3-8.2) 12/18/20 03:59 Albumin 3.4 g/dL (3.9-5) L 12/18/20 03:59 Albumin/Globulin Ratio 0.9 % 12/18/20 03:59 Triglycerides 405 mg/dL (2-149) H 12/18/20 03:59 Cholesterol 288 mg/dL (50-199) H 12/18/20 03:59 LDL Cholesterol Direct TNR 12/18/20 03:59 HDL Cholesterol 38 mg/dL (40-59) L 12/18/20 03:59 Cholesterol/HDL Ratio 7.57 % 12/18/20 03:59 Urine Color Straw (Yellow) 12/18/20 00:49 Urine Turbidity Clear (Clear) 12/18/20 00:49 Urine pH 6.0 (5.0-7.0) 12/18/20 00:49 Ur Specific [place] 1.009 (1.003-1.030) 12/18/20 00:49 Urine Protein >500 mg/dL (Negative) 12/18/20 00:49 Urine Glucose (UA) Neg mg/dL (Negative) 12/18/20 00:49 Urine Ketones Neg mg/dL (Negative) 12/18/20 00:49 Urine Blood Neg (Negative) 12/18/20 00:49 Urine Nitrite Neg (Negative) 12/18/20 00:49 Urine Bilirubin Neg (Negative) 12/18/20 00:49 Urine Urobilinogen < 2.0 mg/dL (<2.0) 12/18/20 00:49 Ur Leukocyte Esterase Neg (Negative) 12/18/20 00:49 Urine WBC (Auto) < 1.0 /HPF (0.0-6.0) 12/18/20 00:49 Urine RBC (Auto) 2.0 /HPF (0.0-6.0) 12/18/20 00:49 U Epithel Cells (Auto) 1.0 /HPF (0-13.0) 12/18/20 00:49 Urine Bacteria (Auto) 1+ /HPF (Negative) 12/18/20 00:49 Fernandez/IV: Voiding Method Toilet Active Medications - Current Medications Current Medications: Generic Name Dose Route Start Last Admin Trade Name Freq PRN Reason Stop Dose Admin Acetaminophen 650 mg 12/17/20 23:39 Acetaminophen 325 Mg Tab PO Q4H PRN Pain MILD(1-3)/Fever >100.5/ORDONEZ Al Hydrox/Mg Hydrox/Simethicone 30 ml 12/17/20 23:39 Alum-Mag Hydroxide-Simethicone [id number]/5ml Oral Liqd 30 Ml PO Q4H PRN Indigestion Aspirin 81 mg 12/18/20 10:00 12/19/20 09:51 Aspirin 81 Mg Tab Chew PO 81 mg QDAY NENA Administration Atorvastatin Calcium 40 mg 12/18/20 22:00 12/19/20 13:14 Atorvastatin 40 Mg Tab PO Not Given QHS NENA Bupropion HCl 100 mg 12/18/20 10:00 12/19/20 09:58 Bupropion Sr 100 Mg Tab PO Not Given DAILY NENA Enoxaparin Sodium 40 mg 12/18/20 10:00 12/19/20 09:50 Enoxaparin 40 Mg/0.4 Ml Inj SUB-Q 40 mg QDAY NENA Administration Famotidine 20 mg 12/18/20 10:00 12/19/20 22:14 Famotidine 20 Mg/2 Ml Inj IV 20 mg BID NENA Administration Gabapentin 300 mg 12/18/20 22:00 12/19/20 23:41 Gabapentin 300 Mg Cap PO 300 mg QHS NENA Administration Hydralazine HCl 50 mg 12/19/20 10:00 12/19/20 23:37 Hydralazine 25 Mg Tab PO 50 mg BID NENA Administration Ibuprofen 600 mg 12/17/20 23:39 12/18/20 21:46 Ibuprofen 600 Mg Tab PO 600 mg Q6H PRN Administration Pain, Mild (1-3) Insulin Human Lispro 0 unit 12/18/20 07:30 12/19/20 22:13 Insulin Lispro 100 Unit/Ml SUB-Q Not Given ACHS [facility] Protocol Lisinopril 40 mg 12/19/20 10:00 12/19/20 09:53 Lisinopril 40 Mg Tab PO Not Given QDAY [facility] Magnesium Hydroxide 30 ml 12/17/20 23:39 Magnesium Hydroxide (Mom) Oral Liqd Udc PO Q4H PRN Constipation Metoclopramide HCl 10 mg 12/17/20 23:39 Metoclopramide 10 Mg/2 Ml Inj IV Q6H PRN Nausea And Vomiting Metoprolol Tartrate 50 mg 12/19/20 09:00 12/20/20 03:35 Metoprolol Tartrate 25 Mg Tab PO 50 mg Q6H NENA Administration Naloxone HCl 0.1 mg 12/17/20 23:39 Naloxone 0.4 Mg/1 Ml Inj IV Q2MIN PRN Res Rate </= 8 or 02 SAT < 92% Nifedipine 90 mg 12/18/20 10:00 12/19/20 09:50 Nifedipine Xl 90 Mg Tab PO 90 mg DAILY [facility] Administration Nitroglycerin 0.4 mg 12/17/20 23:39 Nitroglycerin 0.4 Mg Tab Subl SL Q5M PRN Chest Pain Ondansetron HCl 4 mg 12/17/20 23:39 Ondansetron 4 Mg/2 Ml Inj IV Q8H PRN Nausea And Vomiting Oxycodone/Acetaminophen 1 tab 12/17/20 23:39 12/18/20 23:11 Oxycodone /Acetaminophen 5-325mg Tab PO 1 tab Q6H PRN Administration Pain, Moderate (4-6) Senna 8.6 mg 12/17/20 23:39 Sennosides 8.6 Mg Tab PO Q12HR PRN Constipation Sodium Chloride 10 ml 12/18/20 10:00 12/19/20 22:13 Sodium Chloride 0.9% 10 Ml Flush Syringe IV 10 ml BID NENA Administration Sodium Chloride 10 ml 12/17/20 23:39 Sodium Chloride 0.9% 10 Ml Flush Syringe IV PRN PRN LINE FLUSH Sucralfate 1 gm 12/18/20 00:12 Sucralfate 1 Gm/10 Ml Oral Liqd PO Q6HR PRN Dyspepsia Tramadol HCl 50 mg 12/17/20 23:39 Tramadol 50 Mg Tab PO Q6H PRN Pain, Moderate (4-6)
[2020-12-20] MEDS: INSULIN LISPRO 100 UNIT/ML SUB-Q SCH ×3 (09:01→16:38)
[2020-12-20] MEDS: FAMOTIDINE 20 MG/2 ML INJ IV SCH ×2 (09:02→23:09)
[2020-12-20] MEDS: hydrALAZINE 25 MG TAB PO SCH ×3 (09:02→23:08)
[2020-12-20] MEDS: ENOXAPARIN 40 MG/0.4 ML INJ SUB-Q SCH (09:02)
[2020-12-20] MEDS: NIFEdipine XL 90 MG TAB PO SCH (09:02)
[2020-12-20] MEDS: ASPIRIN 81 MG TAB CHEW PO SCH (09:02)
--- NOTE | 2020-12-20 11:12 | Progress Note ---
Assessment and Plan Increase hydralazine dose. Discontinue nifedipine - she claims that she experienced headache on nifedipine in the past and her PCP had to discontinue it. Initiate amlodipine in place of nifedipine. Lexiscan stress MPI in a.m. - Patient Problems (1) Chest pain Current Visit: Yes Status: Acute (2) Hypertensive urgency Current Visit: Yes Status: Acute (3) Diabetes mellitus Current Visit: Yes Status: Chronic Qualifiers: Diabetes mellitus type: type 2 Subjective Date of service: 12/20/20 Principal diagnosis: CP, HTNsive urgency Interval history: She still has intermittent chest pain. BP remains elevated. Objective Vital Signs Temp Pulse Resp BP Pulse Ox 12/20/20 07:37 97.8 F 70 18 174/96 97 12/20/20 04:45 97.9 F 70 18 148/92 97 12/20/20 03:00 68 12/20/20 02:00 96 12/19/20 23:37 68 148/96 12/19/20 23:36 68 148/96 12/19/20 20:51 97.9 F 68 20 148/96 96 12/19/20 19:00 67 12/19/20 16:31 98.5 F 80 18 110/59 98 12/19/20 16:20 97.7 F 80 18 156/98 100 12/19/20 14:15 18 95 - Physical Examination General: No Apparent Distress HEENT: Positive: EOMI, Normocephaly, Mucus Membranes Moist Neck: Positive: trachea midline Cardiac: Positive: Reg Rate and Rhythm, S1/S2 Lungs: Positive: clear to auscultation Neuro: Positive: Grossly Intact Abdomen: Positive: Soft, Active Bowel Sounds. Negative: Tender Skin: Negative: Rash Musculoskeletal: Normal Range of Motion Extremities: Absent: edema - Imaging and Cardiology EKG: report reviewed, image reviewed Echo: pending - Telemetry EKG Rhythm: Sinus Rhythm
[2020-12-20] MEDS ORDERED: hydrALAZINE 25 MG TAB PO SCH (14:00)
[2020-12-20] MEDS: GABAPENTIN 300 MG CAP PO SCH (23:09)
[2020-12-21] MEDS: METOPROLOL TARTRATE 25 MG TAB PO SCH ×4 (02:56→21:39)
[2020-12-21] MEDS: INSULIN LISPRO 100 UNIT/ML SUB-Q SCH ×5 (04:42→22:09)
[2020-12-21] MEDS ORDERED: REGADENOSON 0.4 MG/5 ML INJ IV ONE (07:30)
[2020-12-21] MEDS: hydrALAZINE 25 MG TAB PO SCH ×3 (08:41→21:32)
[2020-12-21] MEDS: ASPIRIN 81 MG TAB CHEW PO SCH (11:00)
[2020-12-21] MEDS: FAMOTIDINE 20 MG/2 ML INJ IV SCH ×2 (11:00→21:33)
[2020-12-21] MEDS: ENOXAPARIN 40 MG/0.4 ML INJ SUB-Q SCH (11:11)
[2020-12-21] MEDS: amLODIPine 10 MG TAB PO SCH (11:49)
--- NOTE | 2020-12-21 11:49 | Electrocardiograph Report ---
[facility] Test Date: 2020-12-21 Test Time: 08:35:14 Pat Name: JONES LORD Department: Room: A466 Gender: F Copy Room Technician: EMMIE : 1980 Requested By: ANYI SOLANO Order Number: [id number] Reading MD: Rahel Dinh Measurements Intervals [place] Rate: 56 P: 43 WI: 179 QRS: -5 QRSD: 88 T: 132 QT: 432 QTc: 416 Interpretive Statements Sinus bradycardia Probable LVH with secondary repol abnrm Possible old inferior infarct Compared to ECG 12/17/2020 17:40:55 Sinus rate has decreased Electronically Signed On 12-21-2020 11:48:43 EDT by Rahel Dinh
--- NOTE | 2020-12-21 12:51 | Progress Note ---
Assessment and Plan Hypertensive urgency Chest pain * EKG show sinus 84 with no acute ischemic changes. Troponins negative x2. AMI ruled out * Continue medications: metoprolol 50mg PO Q6hr and hydralazine 100mg PO TID, Amlodipine 10mg PO QD * Echo 12/18/2020-EF 60 to 65%, mild diastolic dysfunction impaired relaxation pattern, moderate concentric left ventricular hypertrophy, right ventricle is normal in size right ventricular systolic function is normal * Lexiscan MPI Stress test-Preliminary result is technically difficult study, appears normal stress with EF 54% DM * Management per primary team Preliminary Stress test result appears normal. Optimize antihypertensive regimen: Titrate BP meds as needed Patient seen in conjunction with Dr. Saab who agrees with this plan of care. Will continue to follow - Patient Problems (1) Hypertensive urgency Current Visit: Yes Status: Acute (2) Acute chest pain Current Visit: Yes Status: Acute (3) Obesity (BMI 30-39.9) Current Visit: Yes Status: Acute (4) Tobacco use Current Visit: Yes Status: Acute Subjective Date of service: 12/21/20 Principal diagnosis: CP, HTNsive urgency Interval history: Patient for Lexiscan stress test this AM Sinus 69 on monitor Objective Last Vital Signs Temp 98.2 F 12/21/20 04:11 Pulse 78 12/21/20 10:54 Resp 18 12/21/20 04:11 BP 175/108 12/21/20 10:54 Pulse Ox 100 12/21/20 12:00 - Physical Examination General: No Apparent Distress HEENT: Positive: EOMI, Normocephaly, Mucus Membranes Moist Neck: Positive: trachea midline Cardiac: Positive: Reg Rate and Rhythm Lungs: Positive: Normal Breath Sounds Neuro: Positive: Grossly Intact Abdomen: Positive: Soft, Active Bowel Sounds. Negative: Tender Skin: Negative: Rash Musculoskeletal: Normal Range of Motion Extremities: Present: upper extr. pulses, lower extr. pulses. Absent: edema - Imaging and Cardiology EKG: report reviewed, image reviewed Echo: report reviewed - Telemetry EKG Rhythm: Sinus Rhythm - EKG Sinus rhythms and dysrhythmias: sinus rhythm
[2020-12-21] MEDS ORDERED: hydrALAZINE 20 MG/1 ML INJ IV PRN ×2 (14:30→18:00)
--- NOTE | 2020-12-21 14:32 | Progress Note ---
Assessment and Plan Assessment and plan: --Chest pain Current Visit: Yes Status: Acute Serial cardiac enzymes, EKG Echocardiogram for LV function ejection fraction Aspirin beta-blockers, CAMERON inhibitors, nitrates, statins Cardiology evaluation noted and appreciated Stable stress test on Monday Per cardiology Chest pain * EKG show sinus 84 with no acute ischemic changes. Troponins negative x2. AMI ruled out * Agree with nifedipine 90mg PO QD * Restarted home HTN medications: metoprolol 25mg PO BID and hydralazine 50mg PO BID * Due to patients risk factors for heart disease : HTN, smoker, fmhx plan for Lexiscan stress MPI test on Monday * Echo Pending Stress test Monday. Optimize antihypertensive regimen: Titrate BP meds as needed --Hypertensive urgency/ Current Visit: Yes Status: Acute Moderate control , continue current antihypertensives As needed medications --Hyperglycemia/borderline diabetes A1c 6.6 Current Visit: Yes Status: Acute Accu-Chek, sliding scale coverage, ADA diet Long-acting insulin if needed Diabetic diet, diabetic and nutrition education --Dyslipidemia; Current Visit: Yes Status: Acute Low-cholesterol diet, lipid-lowering medications Closely monitor --Morbid obesity (BMI 42.3) Current Visit: Yes Status: Acute Dietary modification, exercise as tolerated, lifestyle changes Weight reduction when medically stable Patient may benefit from bariatric outpatient consultation For weight reduction program when medically stable --Ongoing tobacco use; Current Visit: Yes Status: Acute Smoking cessation counseling done Risks and consequences and complications of Chronic smoking explained to the patient Advised nicotine patch as needed Patient verbalized understanding -- DVT prophylaxis Current Visit: Yes Status: Acute Subcutaneous Lovenox We will closely monitor the patient and adjust management as needed Plan of care reviewed with the patient and her nurse Cardiology evaluation recommendations noted and appreciated Disposition; follow stress test on Monday Follow clinically, discharge on monday if negative stress test 12/19: Will adjust BP meds if stable. Hydralazine had not been started, this was started and hopefully will help with the diastolic hypertension smoking cessation re-emphasized. 12/20: Blood pressure has stabilized despite refusing lisinopril as she says that this makes her cough. Said result lisinopril has been discontinued. She also refuses Wellbutrin says she has not taken that medication long-term and does not feel she needs it. Patient is for stress test in a.m. considering risk factors. 12/21: Patient with hypertensive urgency systolic blood pressure over 220. She had missed her blood pressure medications this morning preparation for stress test will be given at this time of asked the nursing staff to retest. She states that her blood pressure has been going up to the 180s to 190s systolic at home which also prompted her coming to the hospital. History Interval history: Patient seen and examined no acute respiratory distress no chest pain at this time. Patient seen after stress test blood pressure significantly elevated Hospitalist Physical - Physical exam Narrative exam: VITAL SIGNS: Reviewed. GENERAL: The patient appears normally developed, Vital signs as documented. HEAD: No signs of head trauma. EYES: Pupils are equal. Extraocular motions intact. EARS: Hearing grossly intact. MOUTH: Oropharynx is normal. NECK: No adenopathy, no JVD. CHEST: Chest with clear breath sounds bilaterally. No wheezes, rales, or rhonchi. CARDIAC: Regular rate and rhythm. S1 and S2, without murmurs, gallops, or rubs. VASCULAR: No Edema. Peripheral pulses normal and equal in all extremities. ABDOMEN: Soft, non tender and non distended. No rebound or guarding, and no masses palpated. Bowel Sounds normal. MUSCULOSKELETAL: Good range of motion of all major joints. Extremities without clubbing, cyanosis or edema. NEUROLOGIC EXAM: Alert and oriented x 3 No focal sensory or strength deficits. Speech normal. Follows commands. PSYCHIATRIC: Mood normal. SKIN: detail exam as documented in skin assessment - Constitutional Vitals: Temp Pulse Resp BP Pulse Ox 98.2 F 78 18 223/126 100 12/21/20 04:11 12/21/20 10:54 12/21/20 04:11 12/21/20 14:20 12/21/20 12:00 General appearance: Present: no acute distress, well-nourished, obese (Morbidly obese) HEART Score - HEART Score EKG: Non-specific Age: < 45 Risk factors: > 3 risk factors or hx of atherosclerotic disease (Tobacco, Brother HI at 45 yoa, HTN) Troponin: Troponin T < 0.010 ng/mL (0.00-0.029) 12/17/20 23:45 Troponin: < normal limit - Critical Actions Critical Actions: 4-6 pts:12-16.6% risk of adverse cardiac event. Should be admitted Results - Labs CBC & Chem 7: 12/18/20 03:59 12/18/20 03:59 Labs: Laboratory Last Values WBC 9.8 K/mm3 (4.5-11.0) 12/18/20 03:59 RBC 4.80 M/mm3 (3.65-5.03) 12/18/20 03:59 Hgb 14.6 gm/dl (10.1-14.3) H 12/18/20 03:59 Hct 42.6 % (30.3-42.9) 12/18/20 03:59 MCV 89 fl (79-97) 12/18/20 03:59 MCH 31 pg (28-32) 12/18/20 03:59 MCHC 34 % (30-34) 12/18/20 03:59 RDW 15.5 % (13.2-15.2) H 12/18/20 03:59 Plt Count 268 K/mm3 (140-440) 12/18/20 03:59 Lymph % (Auto) 35.7 % (13.4-35.0) H 12/18/20 03:59 [place] % (Auto) 9.0 % (0.0-7.3) H 12/18/20 03:59 Eos % (Auto) 1.3 % (0.0-4.3) 12/18/20 03:59 Baso % (Auto) 0.5 % (0.0-1.8) 12/18/20 03:59 Lymph # (Auto) 3.5 K/mm3 (1.2-5.4) 12/18/20 03:59 [place] # (Auto) 0.9 K/mm3 (0.0-0.8) H 12/18/20 03:59 Eos # (Auto) 0.1 K/mm3 (0.0-0.4) 12/18/20 03:59 Baso # (Auto) 0.0 K/mm3 (0.0-0.1) 12/18/20 03:59 Seg Neutrophils % 53.5 % (40.0-70.0) 12/18/20 03:59 Seg Neutrophils # 5.2 K/mm3 (1.8-7.7) 12/18/20 03:59 Sodium 137 mmol/L (137-145) 12/18/20 03:59 Potassium 3.7 mmol/L (3.6-5.0) 12/18/20 03:59 Chloride 102.8 mmol/L (98-107) 12/18/20 03:59 Carbon Dioxide 26 mmol/L (22-30) 12/18/20 03:59 Anion Gap 12 mmol/L 12/18/20 03:59 BUN 12 mg/dL (7-17) 12/18/20 03:59 Creatinine 0.7 mg/dL (0.6-1.2) 12/18/20 03:59 Estimated GFR > 60 ml/min 12/18/20 03:59 BUN/Creatinine Ratio 17 % 12/18/20 03:59 Glucose 118 mg/dL (65-100) H 12/18/20 03:59 POC Glucose 154 mg/dL (70-105) H 12/21/20 11:38 Hemoglobin A1c 6.6 % (4-6) H 12/18/20 00:00 Calcium 9.3 mg/dL (8.4-10.2) 12/18/20 03:59 Total Bilirubin 0.30 mg/dL (0.1-1.2) 12/18/20 03:59 AST 11 units/L (5-40) 12/18/20 03:59 ALT 10 units/L (7-56) 12/18/20 03:59 Alkaline Phosphatase 55 units/L (35-129) 12/18/20 03:59 Troponin T < 0.010 ng/mL (0.00-0.029) 12/17/20 23:45 Total Protein 7.1 g/dL (6.3-8.2) 12/18/20 03:59 Albumin 3.4 g/dL (3.9-5) L 12/18/20 03:59 Albumin/Globulin Ratio 0.9 % 12/18/20 03:59 Triglycerides 405 mg/dL (2-149) H 12/18/20 03:59 Cholesterol 288 mg/dL (50-199) H 12/18/20 03:59 LDL Cholesterol Direct TNR 12/18/20 03:59 HDL Cholesterol 38 mg/dL (40-59) L 12/18/20 03:59 Cholesterol/HDL Ratio 7.57 % 12/18/20 03:59 Urine Color Straw (Yellow) 12/18/20 00:49 Urine Turbidity Clear (Clear) 12/18/20 00:49 Urine pH 6.0 (5.0-7.0) 12/18/20 00:49 Ur Specific [place] 1.009 (1.003-1.030) 12/18/20 00:49 Urine Protein >500 mg/dL (Negative) 12/18/20 00:49 Urine Glucose (UA) Neg mg/dL (Negative) 12/18/20 00:49 Urine Ketones Neg mg/dL (Negative) 12/18/20 00:49 Urine Blood Neg (Negative) 12/18/20 00:49 Urine Nitrite Neg (Negative) 12/18/20 00:49 Urine Bilirubin Neg (Negative) 12/18/20 00:49 Urine Urobilinogen < 2.0 mg/dL (<2.0) 12/18/20 00:49 Ur Leukocyte Esterase Neg (Negative) 12/18/20 00:49 Urine WBC (Auto) < 1.0 /HPF (0.0-6.0) 12/18/20 00:49 Urine RBC (Auto) 2.0 /HPF (0.0-6.0) 12/18/20 00:49 U Epithel Cells (Auto) 1.0 /HPF (0-13.0) 12/18/20 00:49 Urine Bacteria (Auto) 1+ /HPF (Negative) 12/18/20 00:49 Fernandez/IV: Voiding Method Toilet Active Medications - Current Medications Current Medications: Generic Name Dose Route Start Last Admin Trade Name Freq PRN Reason Stop Dose Admin Acetaminophen 650 mg 12/17/20 23:39 Acetaminophen 325 Mg Tab PO Q4H PRN Pain MILD(1-3)/Fever >100.5/ORDONEZ Al Hydrox/Mg Hydrox/Simethicone 30 ml 12/17/20 23:39 Alum-Mag Hydroxide-Simethicone [id number]/5ml Oral Liqd 30 Ml PO Q4H PRN Indigestion Amlodipine Besylate 10 mg 12/21/20 10:00 12/21/20 11:49 Amlodipine 10 Mg Tab PO Not Given QDAY NENA Aspirin 81 mg 12/18/20 10:00 12/21/20 11:00 Aspirin 81 Mg Tab Chew PO 81 mg QDAY NENA Administration Atorvastatin Calcium 40 mg 12/18/20 22:00 12/20/20 23:14 Atorvastatin 40 Mg Tab PO Not Given QHS NENA Enoxaparin Sodium 40 mg 12/18/20 10:00 12/21/20 11:11 Enoxaparin 40 Mg/0.4 Ml Inj SUB-Q 40 mg QDAY NENA Administration Famotidine 20 mg 12/18/20 10:00 12/21/20 11:00 Famotidine 20 Mg/2 Ml Inj IV 20 mg BID NENA Administration Gabapentin 300 mg 12/18/20 22:00 12/20/20 23:09 Gabapentin 300 Mg Cap PO 300 mg QHS [facility] Administration Hydralazine HCl 100 mg 12/20/20 14:00 12/21/20 14:20 Hydralazine 25 Mg Tab PO 100 mg TID [facility] Administration Hydralazine HCl 10 mg 12/21/20 14:30 Hydralazine 20 Mg/1 Ml Inj IV Q30MIN PRN Blood Pressure Ibuprofen 600 mg 12/17/20 23:39 12/18/20 21:46 Ibuprofen 600 Mg Tab PO 600 mg Q6H PRN Administration Pain, Mild (1-3) Insulin Human Lispro 0 unit 12/18/20 07:30 12/21/20 11:50 Insulin Lispro 100 Unit/Ml SUB-Q Not Given ACHS [facility] Protocol Magnesium Hydroxide 30 ml 12/17/20 23:39 Magnesium Hydroxide (Mom) Oral Liqd Udc PO Q4H PRN Constipation Metoclopramide HCl 10 mg 12/17/20 23:39 Metoclopramide 10 Mg/2 Ml Inj IV Q6H PRN Nausea And Vomiting Metoprolol Tartrate 50 mg 12/19/20 09:00 12/21/20 10:54 Metoprolol Tartrate 25 Mg Tab PO Not Given Q6H [facility] Naloxone HCl 0.1 mg 12/17/20 23:39 Naloxone 0.4 Mg/1 Ml Inj IV Q2MIN PRN Res Rate </= 8 or 02 SAT < 92% Nitroglycerin 0.4 mg 12/17/20 23:39 Nitroglycerin 0.4 Mg Tab Subl SL Q5M PRN Chest Pain Ondansetron HCl 4 mg 12/17/20 23:39 Ondansetron 4 Mg/2 Ml Inj IV Q8H PRN Nausea And Vomiting Oxycodone/Acetaminophen 1 tab 12/17/20 23:39 12/18/20 23:11 Oxycodone /Acetaminophen 5-325mg Tab PO 1 tab Q6H PRN Administration Pain, Moderate (4-6) Senna 8.6 mg 12/17/20 23:39 Sennosides 8.6 Mg Tab PO Q12HR PRN Constipation Sodium Chloride 10 ml 12/18/20 10:00 12/21/20 11:03 Sodium Chloride 0.9% 10 Ml Flush Syringe IV 10 ml BID NENA Administration Sodium Chloride 10 ml 12/17/20 23:39 Sodium Chloride 0.9% 10 Ml Flush Syringe IV PRN PRN LINE FLUSH Sucralfate 1 gm 12/18/20 00:12 Sucralfate 1 Gm/10 Ml Oral Liqd PO Q6HR PRN Dyspepsia Tramadol HCl 50 mg 12/17/20 23:39 Tramadol 50 Mg Tab PO Q6H PRN Pain, Moderate (4-6)
[2020-12-21] MEDS: ACETAMINOPHEN 325 MG TAB PO PRN (21:32)
[2020-12-21] MEDS: GABAPENTIN 300 MG CAP PO SCH (21:32)
[2020-12-22] MEDS: METOPROLOL TARTRATE 25 MG TAB PO SCH ×2 (02:11→10:06)
[2020-12-22] MEDS: INSULIN LISPRO 100 UNIT/ML SUB-Q SCH (08:29)
[2020-12-22] MEDS: ACETAMINOPHEN 325 MG TAB PO PRN (08:36)
[2020-12-22] MEDS: hydrALAZINE 25 MG TAB PO SCH (08:37)
--- NOTE | 2020-12-22 09:13 | Discharge Summary ---
Providers - Providers Date of Admission: 12/17/20 22:50 Attending physician: GISELLE FOLEY MD 12/17/20 Consult to Cardiac Rehabilitation [CONS] Routine Reason For Exam: Phase I 12/17/20 23:59 Consult to Physician [CONS] Routine Comment: Consulting Provider: KIKI VU Physician Instructions: Reason For Exam: Chest pain Primary care physician: TANA CABRERA Hospitalization Reason for admission: Hypertensive urgency Condition: Fair Hospital course: --Chest pain Current Visit: Yes Status: Acute Serial cardiac enzymes, EKG Echocardiogram for LV function ejection fraction Aspirin beta-blockers, CAMERON inhibitors, nitrates, statins Cardiology evaluation noted and appreciated Stable stress test on Monday Per cardiology Chest pain * EKG show sinus 84 with no acute ischemic changes. Troponins negative x2. AMI ruled out * Agree with nifedipine 90mg PO QD * Restarted home HTN medications: metoprolol 25mg PO BID and hydralazine 50mg PO BID * Due to patients risk factors for heart disease : HTN, smoker, fmhx plan for Lexiscan stress MPI test on Monday * Echo Pending Stress test Monday. Optimize antihypertensive regimen: Titrate BP meds as needed --Hypertensive urgency/ Current Visit: Yes Status: Acute Moderate control , continue current antihypertensives As needed medications --Hyperglycemia/borderline diabetes A1c 6.6 Current Visit: Yes Status: Acute Accu-Chek, sliding scale coverage, ADA diet Long-acting insulin if needed Diabetic diet, diabetic and nutrition education --Dyslipidemia; Current Visit: Yes Status: Acute Low-cholesterol diet, lipid-lowering medications Closely monitor --Morbid obesity (BMI 42.3) Current Visit: Yes Status: Acute Dietary modification, exercise as tolerated, lifestyle changes Weight reduction when medically stable Patient may benefit from bariatric outpatient consultation For weight reduction program when medically stable --Ongoing tobacco use; Current Visit: Yes Status: Acute Smoking cessation counseling done Risks and consequences and complications of Chronic smoking explained to the patient Advised nicotine patch as needed Patient verbalized understanding -- DVT prophylaxis Current Visit: Yes Status: Acute Subcutaneous Lovenox We will closely monitor the patient and adjust management as needed Plan of care reviewed with the patient and her nurse Cardiology evaluation recommendations noted and appreciated Disposition; follow stress test on Monday Follow clinically, discharge on monday if negative stress test 12/19: Will adjust BP meds if stable. Hydralazine had not been started, this was started and hopefully will help with the diastolic hypertension smoking cessation re-emphasized. 12/20: Blood pressure has stabilized despite refusing lisinopril as she says that this makes her cough. Said result lisinopril has been discontinued. She also r efuses Wellbutrin says she has not taken that medication long-term and does not feel she needs it. Patient is for stress test in a.m. considering risk factors. 12/21: Patient with hypertensive urgency systolic blood pressure over 220. She had missed her blood pressure medications this morning preparation for stress test will be given at this time of asked the nursing staff to retest. She states that her blood pressure has been going up to the 180s to 190s systolic at home which also prompted her coming to the hospital. 12/22: Patient reports clinical improvement in symptoms. Her blood pressure is down in the 140s to 160s systolic. I believe that she can be safely discharged considering that she has maintained persistent elevated blood pressure outpatient and I advised her to continue to monitor this to change her diet for 4 low-salt diet, increase exercise which she states is lost 18pounds recently. She is to follow-up with the suction plate roller hand she is to keep a diary of her blood pressure and be compliant with her medications. Disposition: 01 HOME / SELF CARE / HOMELESS Final Discharge Diagnosis (Prints w/discharge instructions): Atypical chest pain secondary to hypertensive urgency Time spent for discharge: 35 minutes Core Measure Documentation - Palliative Care Palliative Care/ Comfort Measures: Not Applicable - Core Measures Any of the following diagnoses?: none Exam - Physical Exam Narrative exam: VITAL SIGNS: Reviewed. GENERAL: The patient appears normally developed, Vital signs as documented. HEAD: No signs of head trauma. EYES: Pupils are equal. Extraocular motions intact. EARS: Hearing grossly intact. MOUTH: Oropharynx is normal. NECK: No adenopathy, no JVD. CHEST: Chest with clear breath sounds bilaterally. No wheezes, rales, or rhonchi. CARDIAC: Regular rate and rhythm. S1 and S2, without murmurs, gallops, or rubs. VASCULAR: No Edema. Peripheral pulses normal and equal in all extremities. ABDOMEN: Soft, non tender and non distended. No rebound or guarding, and no masses palpated. Bowel Sounds normal. MUSCULOSKELETAL: Good range of motion of all major joints. Extremities without clubbing, cyanosis or edema. NEUROLOGIC EXAM: Alert and oriented x 3 No focal sensory or strength deficits. Speech normal. Follows commands. PSYCHIATRIC: Mood normal. SKIN: detail exam as documented in skin assessment - Constitutional Vitals: Temp Pulse Resp BP Pulse Ox 97.7 F 81 20 140/88 100 12/22/20 04:59 12/22/20 08:39 12/22/20 04:59 12/22/20 04:59 12/22/20 08:39 Plan Activity: advance as tolerated, fall precautions Diet: low salt Special Instructions: record daily weights, record daily BP diary Plan of Treatment: Must keep a blood pressure diary and follow-up with your regular doctor and the suction plate roller hand. Also strongly recommend daily exercises. Follow up with: RAUL LOGAN MD [Staff Physician] - 7 Days TANA CABRERA MD [Primary Care Provider] - 7 Days Prescriptions: AtorvaSTATin [Lipitor] 40 mg PO QHS #30 tablet amLODIPine 10 mg PO QDAY #30 tablet hydrALAZINE [Apresoline TAB] 100 mg PO TID #90 tab Aspirin [Aspirin BABY CHEW TAB] 81 mg PO QDAY #30 tab.chew Metoprolol [Lopressor] 100 mg PO BID #60 tablet
[2020-12-22 09:36] VITALS: BP 151/92
[2020-12-22] MEDS: FAMOTIDINE 20 MG/2 ML INJ IV SCH (10:07)
[2020-12-22] MEDS: amLODIPine 10 MG TAB PO SCH (10:07)
[2020-12-22] MEDS: ASPIRIN 81 MG TAB CHEW PO SCH (10:07)
[2020-12-22] MEDS: ENOXAPARIN 40 MG/0.4 ML INJ SUB-Q SCH (10:08)
--- NOTE | 2020-12-24 12:34 | Treadmill Report ---
DATE OF SERVICE: 12/21/2020 NUCLEAR PERFUSION SCAN REFERRING PHYSICIAN: [facility]elly. PROTOCOL: The patient was brought to the stress lab in postabsorptive state given 10 mCi of technetium at rest. The patient had rest imaging. The patient underwent Lexiscan stress test per standard protocol. At peak stress, the patient given 26 mCi technetium-99m. Shortly thereafter, the patient underwent stress imaging. SPECT imaging reveals significant breast attenuation as well as GI artifact, no significant motion artifact. SPECT images examined carefully in the horizontal long axis, vertical long axis, short axis views. Technically difficult study, but grossly no convincing evidence of significant ischemia or prior infarction. Gated wall motion reveals normal systolic thickening, calculated ejection fraction 68%. No TID. CONCLUSIONS: 1. Technically difficult and limited study, but grossly no evidence of significant fixed or reversible perfusion defect suggestive of prior infarction or ischemia. 2. Normal left ventricular systolic performance without evidence of transient ischemic dilatation or stress induced segmental wall motion abnormalities. TID: [id number] RECEIPT: [id number] [facility]/DIANNE
== END 2020-12-22 10:00 | disposition home or self-care (01) ==
LOC: ED 17:21 → 4A 22:50 → UNDODISOB 12-21 18:35
PROVIDERS: ADMIT Hospitalist; ATTEND Internal Medicine
DX: R07.89 Other chest pain (principal); I16.0 Hypertensive urgency; E66.9 Obesity, unspecified; E11.65 Type 2 diabetes mellitus with hyperglycemia; E78.5 Hyperlipidemia, unspecified; F17.210 Nicotine dependence, cigarettes, uncomplicated; Z68.41 Body mass index [BMI] 40.0-44.9, adult; Z90.710 Acquired absence of both cervix and uterus; Z79.82 Long term (current) use of aspirin; Z87.19 Personal history of other diseases of the digestive system
CPT/HCPCS: 36415; 71046; 78452; 80048; 80053; 80061; 81001; 82962; 83036; 84484; 85025; 93005; 93017; 93306; 96372; 96374; 96375; 96376; 99285; 99406; A9270; A9502; G0378; J0360; J1650; J2785

== ENCOUNTER 2021-01-07 21:24 | Observation (INO) | payer MEDICAID ==
[2021-01-07] MEDS ORDERED: MORPHINE 4 MG/1 ML INJ IV ONE (22:32)
[2021-01-07] MEDS ORDERED: ONDANSETRON 4 MG/2 ML INJ IV ONE (22:32)
[2021-01-07] MEDS ORDERED: hydrALAZINE 20 MG/1 ML INJ IV ONE (22:32)
--- NOTE | 2021-01-07 22:41 | Emergency Department Report ---
Blank Doc - Documentation Documentation: 40-year-old female that presents with hypertension, right-sided chest pain with radiation to right arm, generalized weakness, fatigue and some shortness of breath. Patient denies being Covid vaccinated. Patient stated she is compliant with her blood pressure medication. 1- This is a initial triage assessment/medical screening only. Full assessment and work-up will be completed once the patient is in proper hospital gown, ED bed and in a private room setting. This initial assessment/diagnostic orders/clinical plan/ treatment(s) is/are subject to change based on pt's health status, clinical progression and re-assessment by fellow clinical providers in the ED. Further treatment and workup at subsequent clinical providers discretion. Patient/guardians urged not to elope from ED as their condition may be serious if not clinically assessed and managed. 2-cardiac work-up 3-hydralazine, morphine and Zofran ordered for patient 4-patient sent to main ED for further evaluation and treatment. The patient was evaluated in the emergency department for symptoms described in the history of present illness. He/she was evaluated in the context of the global COVID-19 pandemic, which necessitated consideration that the patient might be at risk for infection with the virus that causes COVID-19. Institutional protocols and algorithms that pertain to the evaluation of patients at risk for COVID-19 are in a state of rapid change based on information released by regulatory bodies including the CDC and federal and state organizations. These policies and algorithms were followed during the patient's care in the emergency department. Please note that these policies, procedures and recommendations changed on a rapid basis.
--- NOTE | 2021-01-07 23:07 | Emergency Department Report ---
ED Chest Pain HPI - General Chief Complaint: Chest Pain Stated Complaint: DULL PAIN DOWN RIGHT ARM CHILLS FATIGUE JOINT WEAK PUI?: No Time Seen by Provider: 01/07/21 22:31 Source: patient Mode of arrival: Ambulatory Limitations: No Limitations - History of Present Illness Initial Comments: Patient is a 40-year-old female who presents emergency room with complaints of right-sided chest pain. Patient states the chest pain starts in her right chest and radiates to her right upper extremity. Patient also complains of chills, f atigue, body aches. Patient states the pain is a 10 out of 10. Patient states the pain is better with rest and worse with movement. Patient states she is not vaccinated against COVID-19. Patient denies cough. Patient denies recent travel. Patient denies recent international travel. Patient denies exposure to the novel coronavirus. Patient denies sick contacts. Patient denies cough. Patient denies diarrhea. Patient denies coming in contact with anybody with symptoms of the novel coronavirus. MD Complaint: chest pain -: Sudden Pain Location: right chest Pain Radiation: RUE Severity: severe Severity scale (0 -10): 10 Quality: sharp Consistency: constant Improves With: rest Worsens With: palpation, movement re: dyspnea. denies: nausea, vomting, diaphoresis, sense of impending doom Other Symptoms: fever Treatments Prior to Arrival: none Aspirin use within the Past 7 Days: (1) Yes - Related Data On Oral Contraceptives: No Home Medications Medication Instructions Recorded Confirmed Last Taken Omeprazole Magnesium [PriLOSEC Otc] 20 mg PO QDAY PRN 12/19/20 12/19/20 Unknown Previous Rx's Medication Instructions Recorded Last Taken Type Aspirin [Aspirin BABY CHEW TAB] 81 mg PO QDAY #30 tab.chew 12/21/20 Unknown Rx AtorvaSTATin [Lipitor] 40 mg PO QHS #30 tablet 12/21/20 Unknown Rx Metoprolol [Lopressor] 100 mg PO BID #60 tablet 12/21/20 Unknown Rx amLODIPine 10 mg PO QDAY #30 tablet 12/21/20 Unknown Rx hydrALAZINE [Apresoline TAB] 100 mg PO TID #90 tab 12/21/20 Unknown Rx Allergies Allergy/AdvReac Type Severity Reaction Status Date / Time tree nuts Allergy Swelling Uncoded 12/19/20 03:19 Heart Score - HEART Score History: Slightly suspicious EKG: Normal Age: < 45 Risk factors: > 3 risk factors or hx of atherosclerotic disease Troponin: 1-3x normal limit HEART Score: 3 - EKG Read Time Time EKG Completed: 22:15 EKG Read Time: 22:19 ED Review of Systems ROS: Stated complaint: DULL PAIN DOWN RIGHT ARM CHILLS FATIGUE JOINT WEAK Other details as noted in HPI Constitutional: chills. denies: fever Eyes: denies: eye pain, eye discharge, vision change ENT: denies: ear pain, throat pain Respiratory: see HPI, shortness of breath. denies: cough, wheezing Cardiovascular: as per HPI, chest pain. denies: palpitations Endocrine: no symptoms reported Gastrointestinal: denies: abdominal pain, nausea, vomiting, diarrhea Genitourinary: denies: urgency, dysuria, discharge Musculoskeletal: denies: back pain, joint swelling, arthralgia Skin: denies: rash, lesions Neurological: denies: headache, weakness, paresthesias Psychiatric: denies: anxiety, depression Hematological/Lymphatic: denies: easy bleeding, easy bruising ED Past Medical Hx - Past Medical History Previous Medical History?: Yes Hx Hypertension: Yes Hx Diabetes: Yes (pre DM per pt- on metformin) Hx GERD: Yes (no issues lately) Additional medical history: Gastric Ulcers - Surgical History Past Surgical History?: Yes Additional Surgical History: - Family History Family history: no significant - Social History Smoking Status: Current Every Day Smoker Substance Use Type: None - Medications Home Medications: Home Medications Medication Instructions Recorded Confirmed Last Taken Type Omeprazole Magnesium [PriLOSEC Otc] 20 mg PO QDAY PRN 12/19/20 12/19/20 Unknown History Aspirin [Aspirin BABY CHEW TAB] 81 mg PO QDAY #30 tab.chew 12/21/20 Unknown Rx AtorvaSTATin [Lipitor] 40 mg PO QHS #30 tablet 12/21/20 Unknown Rx Metoprolol [Lopressor] 100 mg PO BID #60 tablet 12/21/20 Unknown Rx amLODIPine 10 mg PO QDAY #30 tablet 12/21/20 Unknown Rx hydrALAZINE [Apresoline TAB] 100 mg PO TID #90 tab 12/21/20 Unknown Rx ED Physical Exam - General Limitations: No Limitations General appearance: alert, in no apparent distress - Head Head exam: Present: atraumatic, normocephalic - Eye Eye exam: Present: normal appearance - ENT ENT exam: Present: mucous membranes moist - Neck Neck exam: Present: normal inspection - Respiratory Respiratory exam: Present: normal lung sounds bilaterally, chest wall tenderne ss. Absent: respiratory distress - Cardiovascular Cardiovascular Exam: Present: regular rate, normal rhythm. Absent: systolic murmur, diastolic murmur, rubs, gallop - GI/Abdominal GI/Abdominal exam: Present: soft, normal bowel sounds. Absent: distended, tenderness - Rectal Rectal exam: Present: deferred - Extremities Exam Extremities exam: Present: normal inspection - Back Exam Back exam: Present: normal inspection - Neurological Exam Neurological exam: Present: alert, oriented X3 - Psychiatric Psychiatric exam: Present: normal affect, normal mood - Skin Skin exam: Present: warm, dry, intact, normal color. Absent: rash ED Course Vital Signs 01/07/21 01/07/21 01/08/21 22:06 23:09 00:19 Temperature 98.8 F 98.8 F Pulse Rate 86 85 89 Respiratory 18 20 20 Rate Blood Pressure 190/115 Blood Pressure 143/87 141/87 [Left] O2 Sat by Pulse 100 100 100 Oximetry 01/08/21 01/08/21 01/08/21 00:29 00:30 00:32 Temperature Pulse Rate 85 Respiratory 20 20 Rate Blood Pressure 141/87 Blood Pressure [Left] O2 Sat by Pulse 100 Oximetry - Reevaluation(s) Reevaluation #1: I discussed all results with patient. I discussed plan of care with patient. Patient agrees with plan of care and admission. Patient to be admitted to the hospitalist service. 01/08/21 01:15 - Consultations Consultation #1: Hospitalist consulted for admission. Hospitalist to admit patient. 01/08/21 01:15 KIRA score - Kira Score Age > 65: (0) No Aspirin use within the Past 7 Days: (0) No 3 or more CAD Risk Factors: (1) Yes 2 or more Angina events in past 24 hrs: (1) Yes Known CAD with more than 50% Stenosis: (0) No Elevated Cardiac Markers: (1) Yes ST Deviation Greater than 0.5mm: (0) No KIRA Score: 3 ED Medical Decision Making - Lab Data Result diagrams: 01/07/21 22:40 01/07/21 22:40 - EKG Data -: EKG Interpreted by Me EKG shows normal: sinus rhythm, axis, intervals, QRS complexes, ST-T waves Rate: normal - Radiology Data Radiology results: report reviewed, image reviewed CHEST 2 VIEWS INDICATION / CLINICAL INFORMATION: Chest Pain STUDY TIME: 2346 COMPARISON: 12/17/2020 FINDINGS: SUPPORT DEVICES: None. HEART / MEDIASTINUM: No significant abnormality. LUNGS / PLEURA: Mild scarring is again seen in the lingula. No acute infiltrates are noted. Minimal portion of the left lateral base is excluded from the PA view. No pleural effusions are seen. No pneumothorax. ADDITIONAL FINDINGS: No significant additional findings. - Medical Decision Making Patient is a 40-year-old female that presents emergency room with complaints of right-sided chest pain rating to her right arm. Patient also complained of ch ills and body aches. Patient had a chest x-ray which was negative for acute findings. Patient had labs done which were essentially unremarkable except for elevated troponin. Patient's troponin is minimally elevated and can be monitored. Patient not require a stat heparin drip at this time. Patient had an EKG which was negative for acute findings. Patient's ST segments are normal. I personally reviewed EKG and chest x-ray. Patient admitted to the hospital service for further evaluation treatment and rule out ACS. Patient require further evaluation for elevated troponin. Patient given aspirin while in the ER. Critical care time documented due to the multiple reassessments, prolonged time at the bedside, interpretation of diagnostics and labs. - Differential Diagnosis Chest pain, ACS, Covid, pneumonia, UTI, fever Critical Care Time: Yes Critical care time in (mins) excluding proc time.: 35 Critical care attestation.: If time is entered above; I have spent that time in minutes in the direct care of this critically ill patient, excluding procedure time. Critical Care Time: 35 minutes ED Disposition Clinical Impression: Acute chest pain, Body aches, Chills, Right-sided chest pain, Elevated troponin Chest pain Qualifiers: Chest pain type: unspecified Qualified Code(s): R07.9 - Chest pain, unspecified Disposition: 09 ADMITTED INPATIENT Is pt being admited?: Yes Does the pt Need Aspirin: No Condition: Critical Instructions: Nonspecific Chest Pain, Adult, Chest Pain (ED) Time of Disposition: 01:09
[2021-01-07 23:24] LABS: Basophils % (Auto) 0.3 % (0.0-1.8); Eosinophils # (Auto) 0.3 K/mm3 (0.0-0.4); Eosinophils % (Auto) 3.4 % (0.0-4.3); Hematocrit 37.8 % (30.3-42.9); Hemoglobin 13.2 gm/dl (10.1-14.3); Lymphocytes # (Auto) 3.2 K/mm3 (1.2-5.4); Lymphocytes % (Auto) 36.7 % (13.4-35.0); Mean Corpuscular HGB Conc 35 % (30-34); Mean Corpuscular Volume 88 fl (79-97); Monocytes # (Auto) 0.6 K/mm3 (0.0-0.8); Monocytes % (Auto) 7.1 % (0.0-7.3); Platelet Count 276 K/mm3 (140-440); Red Blood Count 4.29 M/mm3 (3.65-5.03); Red Cell Distribution Width 14.7 % (13.2-15.2)
[2021-01-07 23:35] LABS: INR 0.91 (0.87-1.13); Partial Thromboplastin Time 29.9 Sec. (24.2-36.6)
[2021-01-07 23:37] LABS: Alanine Aminotransferase 16 units/L (7-56); Albumin 3.3 g/dL (3.9-5); BUN/Creatinine Ratio 17; Bilirubin,Direct < 0.2 mg/dL (0-0.2); Blood Urea Nitrogen 10 mg/dL (7-17); Calcium 8.5 mg/dL (8.4-10.2); Hemolysis Index 7
--- NOTE | 2021-01-08 00:12 | XRay Report ---
CHEST 2 VIEWS INDICATION / CLINICAL INFORMATION: Chest Pain STUDY TIME: 2346 COMPARISON: 12/17/2020 FINDINGS: SUPPORT DEVICES: None. HEART / MEDIASTINUM: No significant abnormality. LUNGS / PLEURA: Mild scarring is again seen in the lingula. No acute infiltrates are noted. Minimal p ortion of the left lateral base is excluded from the PA view. No pleural effusions are seen. No pneum othorax. ADDITIONAL FINDINGS: No significant additional findings. Signer Name: Rainer Sapp MD Signed: 01/08/2021 12:08 AM Workstation Name: [id number]
[2021-01-08 01:30] LABS: Chol/HDL Ratio 7.42 %; HDL Cholesterol 33 mg/dL (40-59); LDL Cholesterol,Direct TNR mg/dL (50-130)
--- NOTE | 2021-01-08 01:51 | History and Physical Report ---
History of Present Illness Date of examination: 02/06/21 Date of admission: 01/07/21 Chief complaint: Chest pain History of present illness: This is a 40-year-old female seen in emergency room at bedside. Patient came complaints of right-sided chest pain. Patient reported her pain has improved at the time of this assessment. Per patient ED record, the chest pain starts in her right chest and radiates to her right upper extremity. Patient also complains of chills, fatigue, body aches. Patient states the pain is better with rest and worse with movement. Patient states she is not vaccinated against COVID-19. Patient denies cough. Patient advised to get her Covid vaccine post discharge. Patient voiced understanding. Reviewed patient medical record, med ication administration, and vital signs. Patient has elevated troponin. Echocardiogram ordered and drop wire stringer consulted. Past History Past Medical History: GERD, hypertension, hyperlipidemia Past Surgical History: No surgical history Social history: lives with family. denies: alcohol abuse, prescription drug abuse, IV drug use Family history: no significant family history Medications and Allergies Allergies Allergy/AdvReac Type Severity Reaction Status Date / Time tree nuts Allergy Swelling Uncoded 12/19/20 03:19 Home Medications Medication Instructions Recorded Confirmed Last Taken Type Omeprazole Magnesium [PriLOSEC Otc] 20 mg PO QDAY PRN 12/19/20 12/19/20 Unknown History Aspirin [Aspirin BABY CHEW TAB] 81 mg PO QDAY #30 tab.chew 12/21/20 Unknown Rx AtorvaSTATin [Lipitor] 40 mg PO QHS #30 tablet 12/21/20 Unknown Rx Metoprolol [Lopressor] 100 mg PO BID #60 tablet 12/21/20 Unknown Rx amLODIPine 10 mg PO QDAY #30 tablet 12/21/20 Unknown Rx hydrALAZINE [Apresoline TAB] 100 mg PO TID #90 tab 12/21/20 Unknown Rx Review of Systems Constitutional: fatigue, weakness Ears, nose, mouth and throat: no epistaxis, no bleeding gums Cardiovascular: chest pain Respiratory: no snoring Gastrointestinal: no BRBPR, no melena Rectal: no itching, no hemorrhoids Neurological: no head injury Hematologic/Lymphatic: no easy bruising, no easy bleeding, no lymphadenopathy, no lymphedema Exam - Constitutional Vitals: Temp Pulse Resp BP Pulse Ox 98.8 F 85 20 141/87 100 01/07/21 23:09 01/08/21 00:30 01/08/21 00:32 01/08/21 00:30 01/08/21 00:32 General appearance: Present: mild distress, well-nourished - EENT Eyes: Present: PERRL ENT: hearing intact, clear oral mucosa - Neck Neck: Present: supple, normal ROM - Respiratory Respiratory effort: normal Respiratory: bilateral: CTA - Cardiovascular Heart rate: 85 Rhythm: regular Heart Sounds: Present: S1 & S2. Absent: rub, click - Extremities Extremities: pulses symmetrical, No edema Peripheral Pulses: within normal limits - Abdominal General gastrointestinal: Present: soft, non-tender, non-distended, normal bowel sounds Female genitourinary: Present: normal - Integumentary Integumentary: Present: clear, warm, dry - Musculoskeletal Musculoskeletal: gait normal, strength equal bilaterally - Psychiatric Psychiatric: appropriate mood/affect, intact judgment & insight, cooperative - Neurologic Neurologic: CNII-XII intact, moves all extremities - Allied Health Allied health notes reviewed: nursing HEART Score - HEART Score EKG: Normal Age: < 45 Risk factors: > 3 risk factors or hx of atherosclerotic disease Troponin: Troponin T 0.031 ng/mL (0.00-0.029) H 01/07/21 22:40 Troponin: 1-3x normal limit Results - Labs CBC & Chem 7: 01/07/21 22:40 01/07/21 22:40 Labs: Abnormal lab results 01/07/21 01/07/21 Range/Units 22:40 22:40 MCHC 35 H (30-34) % Lymph % (Auto) 36.7 H (13.4-35.0) % Carbon Dioxide 21 L (22-30) mmol/L Glucose 248 H (65-100) mg/dL Troponin T 0.031 H (0.00-0.029) ng/mL Albumin 3.3 L (3.9-5) g/dL Triglycerides 405 H (2-149) mg/dL Cholesterol 245 H (50-199) mg/dL HDL Cholesterol 33 L (40-59) mg/dL Assessment and Plan - Patient Problems (1) Acute chest pain Current Visit: No Status: Acute Plan to address problem: Aspirin and statin Sublingual nitro as needed Echo ordered drop wire stringer consulted (2) Elevated troponin Current Visit: No Status: Acute Plan to address problem: Questionable cause/cardiac Trend troponin (3) Hypertensive urgency Current Visit: No Status: Acute Plan to address problem: Resume home antihypertensive Monitor blood pressure As needed hydralazine (4) Hyperlipidemia Current Visit: No Status: Acute Plan to address problem: Continue home statin (5) DVT prophylaxis Current Visit: No Status: Acute Plan to address problem: Heparin subcutaneous
[2021-01-08] MEDS ORDERED: MAGNESIUM HYDROXIDE (MOM) ORAL LIQD UDC PO PRN (01:53)
[2021-01-08] MEDS ORDERED: ALUM-MAG HYDROXIDE-SIMETHICONE 200-200-20MG/5ML ORAL LIQD 30 ML PO PRN (01:53)
[2021-01-08] MEDS ORDERED: traMADol 50 MG TAB PO PRN (01:53)
[2021-01-08] MEDS ORDERED: ACETAMINOPHEN 325 MG TAB PO PRN ×2 (01:53)
[2021-01-08] MEDS ORDERED: METOCLOPRAMIDE 10 MG/2 ML INJ IV PRN (01:53)
[2021-01-08] MEDS ORDERED: ONDANSETRON 4 MG/2 ML INJ IV PRN (01:53)
[2021-01-08] MEDS ORDERED: NITROGLYCERIN 0.4 MG TAB SUBL SL PRN (01:53)
[2021-01-08] MEDS ORDERED: NON-FORMULARY EACH (Omeprazole Magnesium [Prilosec Otc] 20 MG Tablet.Dr) PO PRN (01:59)
[2021-01-08] MEDS ORDERED: hydrALAZINE 20 MG/1 ML INJ IV PRN (02:05)
[2021-01-08 02:07] LABS: Creatine Kinase MB 1.7 ng/mL (0.0-4.0)
[2021-01-08] MEDS: HEPARIN 5,000 UNIT/1 ML VIAL SUB-Q SCH ×2 (04:33→06:07)
[2021-01-08] MEDS ORDERED: hydrALAZINE 100 MG TAB PO SCH (08:00)
--- NOTE | 2021-01-08 09:20 | Event Note ---
Date: 01/08/21 This patient was consulted on by Dr. ADAMES on her previous admission to this hospital just 2 weeks ago. Please refer to his service for continued cardiology management.
[2021-01-08] MEDS ORDERED: amLODIPine 10 MG TAB PO SCH (10:00)
[2021-01-08] MEDS ORDERED: PANTOPRAZOLE 40 MG TAB PO SCH (10:00)
[2021-01-08] MEDS ORDERED: ASPIRIN 81 MG TAB CHEW PO SCH (10:00)
[2021-01-08 11:06] VITALS: BP 161/99
--- NOTE | 2021-01-08 12:35 | Discharge Summary ---
Providers - Providers Date of Admission: 01/08/21 01:53 Date of discharge: 01/07/21 Attending physician: DELL FRAUSTO MD 01/08/21 Consult to Cardiac Rehabilitation [CONS] Routine Reason For Exam: Phase I Primary care physician: TANA CABRERA Hospitalization Condition: Critical Exam - Constitutional Vitals: Temp Pulse Resp BP Pulse Ox 98.8 F 89 15 161/99 100 01/07/21 23:09 01/08/21 11:00 01/08/21 11:00 01/08/21 11:00 01/08/21 11:00 Plan Assessment: Patient with musculoskeletal pain. Denies chest pain. Right upper extremity numbness no longer present. Discussed patient with Cardiology. Will discharge home. Follow up with: TANA CABRERA MD [Primary Care Provider] - 7 Days Prescriptions: amLODIPine 10 mg PO QDAY #30 tablet
--- NOTE | 2021-01-11 14:43 | Electrocardiograph Report ---
[facility] Test Date: 2021-01-07 Test Time: 22:15:22 Pat Name: JONES LORD Department: Room: [place] [address] Gender: F Graphic Design Assistant: MIKEY : 1980 Requested By: VINNIE AYALA Order Number: [id number] Reading MD: Rahel Dinh Measurements Intervals [place] Rate: 91 P: 47 UT: 148 QRS: 13 QRSD: 91 T: 171 QT: 351 QTc: 433 Interpretive Statements Sinus rhythm Left ventricular hypertrophy Nonspecific T abnormalities, lateral leads Compared to ECG 12/21/2020 08:35:14 No significant change Electronically Signed On 01-11-2021 14:43:13 EDT by Rahel Dinh
== END 2021-01-08 15:00 | disposition home or self-care (01) ==
LOC: ED 21:24 → 4A 01-08 01:53
PROVIDERS: ADMIT Internal Medicine Geriatric Medicine; ATTEND Student in an Organized Health Care Education/Training Program
DX: R07.89 Other chest pain (principal); Z20.822 Contact with and (suspected) exposure to COVID-19; A01.05 Typhoid osteomyelitis; I16.0 Hypertensive urgency; K21.9 Gastro-esophageal reflux disease without esophagitis; E78.5 Hyperlipidemia, unspecified; R77.8 Other specified abnormalities of plasma proteins; R68.83 Chills (without fever); Z79.82 Long term (current) use of aspirin; Z98.891 History of uterine scar from previous surgery
CPT/HCPCS: 36415; 71046; 80048; 80061; 80076; 82550; 82553; 83036; 84484; 84703; 85025; 85610; 85730; 93005; 96372; 96374; 96375; 99291; G0378; J1644; J2270; J2405; U0003